=== PATIENT | male | born 1930 | race Caucasian/White ===

== ENCOUNTER 2017-07-12 11:53 | Outpatient (CLI) | payer MEDICARE, OTHER ==
[2017-07-12 19:12] LABS: BASOPHILS # (AUTO) 0.1 10^3/uL (0.0-0.1); BASOPHILS % (AUTO) 0.9 %; EOSINOPHILS # (AUTO) 0.2 10^3/uL (0.0-0.7); EOSINOPHILS % (AUTO) 1.9 %; HCT - HEMATOCRIT 37.6 % (42.0-52.0); HGB - HEMOGLOBIN 12.6 g/dL (14.0-18.0); LYMPHOCYTES # (AUTO) 1.4 10^3/uL (1.5-3.5); LYMPHOCYTES % (AUTO) 17.5 %; MEAN CORPUSCULAR HEMOGLOBIN 31.9 pg (27.0-31.0); MEAN CORPUSCULAR HGB CONC 33.4 g/dL (32.0-36.0); MEAN CORPUSCULAR VOLUME 95.4 fL (80.0-94.0); MEAN PLATELET VOLUME 10.9 fL (7.4-11.4); MONOCYTES # (AUTO) 0.8 10^3/uL (0.0-1.0); MONOCYTES % (AUTO) 10.5 %; NEUTROPHILS # (AUTO) 5.5 10^3/uL (1.5-6.6); NEUTROPHILS % (AUTO) 69.2 %; RED BLOOD COUNT 3.94 10^6/uL (4.70-6.10); RED CELL DISTRIBUTION WIDTH 14.5 % (12.0-15.0); UNCORRECTED WHITE BLOOD COUNT 7.9 x10^3/uL; WHITE BLOOD COUNT 7.9 x10^3/uL (4.8-10.8)
[2017-07-12 19:15] LABS: ALBUMIN/GLOBULIN RATIO 1.3 (1.0-2.2); BILIRUBIN,TOTAL 0.8 mg/dL (0.2-1.0); BUN - BLOOD UREA NITROGEN 34 mg/dL (6-20); CALCIUM 9.1 mg/dL (8.5-10.3); CARBON DIOXIDE - CO2 24 mmol/L (21-32); CHLORIDE 109 mmol/L (101-111); CREATININE 1.8 mg/dL (0.6-1.2); GFR - MDRD 36 (>89); GLUCOSE 83 mg/dL (70-100); POTASSIUM 4.6 mmol/L (3.5-5.0); SODIUM 138 mmol/L (135-145); TOTAL PROTEIN 6.9 g/dL (6.7-8.2)
== END 2017-07-12 11:54 | disposition home or self-care (01) ==
LOC: LAB.WCP 11:53
PROVIDERS: ATTEND Family Medicine
DX: R53.83 Other fatigue (principal)
CPT/HCPCS: 36415; 80053; 84443; 85025

== ENCOUNTER 2018-03-26 08:09 | Outpatient (CLI) | payer MEDICARE, OTHER | END 2018-03-26 08:10 | disposition critical access hospital (66) | LOC: EMS 08:09 | PROVIDERS: ATTEND Surgery | DX: S09.93XA Unspecified injury of face, initial encounter (principal); W19.XXXA Unspecified fall, initial encounter; Y92.099 Unspecified place in other non-institutional residence as the place of occurrence of the external cause | CPT/HCPCS: A0425; A0429 ==

== ENCOUNTER 2018-03-26 08:30 | Emergency (ER) | payer MEDICARE, OTHER ==
--- NOTE | 2018-03-26 09:35 | ED Physician Documentation ---
PD HPI HEAD INJURY - Stated complaint Stated Complaint: GLF - Chief complaint Chief Complaint: Trauma Hd/Nk - History obtained from History obtained from: Patient, Family - History of Present Illness Mechanism of head injury: Fell Where head injury occurred: Home Timing - onset: Today Location of injury: Left, Front Quality of pain: Pain Associated symptoms: Amnesia, Other (found on the floor with blood present and swelling to the left eye). No: AMS, Nausea / vomiting, Neck pain, Paresthesias , Seizures, Ear drainage, Nasal drainage Symptoms improve with: Rest Symptoms worsen with: Palpation, Movement Contributing factors: No: Anticoagulated Similar symptoms before: Has not had sx before Recently seen: Not recently seen - Additional information Additional information: 87-year-old male with advanced dementia presents to the emergency department with his daughter after having fallen onto his face at [facility]. She indicates that he has had 3 falls in the last 4 days. He has had more falls recently but not this high of a frequency. He lives in assisted living. Review of Systems Constitutional: denies: Fever Eyes: denies: Decreased vision Ears: denies: Ear pain Nose: denies: Congestion Throat: denies: Sore throat Cardiac: denies: Chest pain / pressure, Palpitations Respiratory: denies: Dyspnea, Cough GI: denies: Abdominal Pain, Nausea, Vomiting : denies: Dysuria, Frequency Skin: denies: Rash Musculoskeletal: reports: Back pain (chronic). denies: Neck pain PD PAST MEDICAL HISTORY - Past Medical History Past Medical History: Yes Neuro: Alzhiemer's - Past Surgical History Past Surgical History: No - Allergies Allergies/Adverse Reactions: Allergies Allergy/AdvReac Type Severity Reaction Status Date / Time No Known Drug Allergies Allergy Verified 03/26/18 08:40 - Social History Does the pt smoke?: No Smoking Status: Never smoker Does the pt drink ETOH?: No Does the pt have substance abuse?: No - Immunizations Immunizations are current?: Yes PD ED PE NORMAL - Vitals Vital signs reviewed: Yes (wide pulse pressure. ) - General General: No acute distress, Well developed/nourished - HEENT HEENT: PERRL, EOMI, Other ( there is marked ecchymosis to the left eye with a laceration to the inferior corner. The eye itself does not appear injured and he reports normal vision to that eye. ) - Neck Neck: Supple, no meningeal sign, No bony TTP - Cardiac Cardiac: RRR, Other (2/6 holosystolic murmer. ) - Respiratory Respiratory: No respiratory distress, Clear bilaterally - Abdomen Abdomen: Soft, Non tender - Back Back: No CVA TTP - Derm Derm: Normal color, Warm and dry, No rash - Extremities Extremities: No deformity, No edema, Other (There are multiple bruises to the left arm and forearm several days old. ) - Neuro Neuro: No motor deficit, No sensory deficit, Normal speech Eye Opening: Spontaneous Motor: Obeys Commands Verbal: Confused GCS Score: 14 - Psych Psych: Normal mood, Normal affect Results - Vitals Vitals: Vital Signs - 24 hr 03/26/18 03/26/18 08:40 11:46 Temperature 36.3 C L Heart Rate 70 68 Respiratory 18 14 Rate Blood Pressure 133/67 H 161/72 H O2 Saturation 95 98 Oxygen O2 Source Room air - Labs Labs: Laboratory Tests 03/26/18 03/26/18 03/26/18 09:53 10:05 10:05 WBC 10.4 RBC 3.81 L Hgb 12.3 L Hct 36.3 L MCV 95.2 H MCH 32.3 H MCHC 33.9 RDW 14.5 Plt Count 166 MPV 9.7 Neut # 8.4 H Lymph # 1.1 L [place] # 0.8 Eos # 0.1 Baso # 0.1 Absolute Nucleated RBC 0.00 Nucleated RBC % 0.0 Sodium 136 Potassium 4.0 Chloride 104 Carbon Dioxide 24 Anion Gap 8.0 BUN 35 H Creatinine 1.5 H Estimated GFR (MDRD) 44 L Glucose 104 H Calcium 9.1 Total Bilirubin 1.1 H AST 25 ALT 19 Alkaline Phosphatase 59 Troponin I Total Protein 6.9 Albumin 3.9 Globulin 3.0 Albumin/Globulin Ratio 1.3 Lipase 14 L Urine Color YELLOW Urine Clarity CLEAR Urine pH 6.0 Ur Specific [place] 1.015 Urine Protein NEGATIVE Urine Glucose (UA) NEGATIVE Urine Ketones NEGATIVE Urine Occult Blood NEGATIVE Urine Nitrite NEGATIVE Urine Bilirubin NEGATIVE Urine Urobilinogen 0.2 (NORMAL) Ur Leukocyte Esterase NEGATIVE Ur Microscopic Review NOT INDICATED Urine Culture Comments NOT INDICATED 03/26/18 10:05 WBC RBC Hgb Hct MCV MCH MCHC RDW Plt Count MPV Neut # Lymph # [place] # Eos # Baso # Absolute Nucleated RBC Nucleated RBC % Sodium Potassium Chloride Carbon Dioxide Anion Gap BUN Creatinine Estimated GFR (MDRD) Glucose Calcium Total Bilirubin AST ALT Alkaline Phosphatase Troponin I < 0.04 Total Protein Albumin Globulin Albumin/Globulin Ratio Lipase Urine Color Urine Clarity Urine pH Ur Specific [place] Urine Protein Urine Glucose (UA) Urine Ketones Urine Occult Blood Urine Nitrite Urine Bilirubin Urine Urobilinogen Ur Leukocyte Esterase Ur Microscopic Review Urine Culture Comments - Rads (name of study) CT facial bones Radiology: Prelim report reviewed (Impression: Negative for fracture.), EMP read indepedently, See rad report CT head Radiology: Prelim report reviewed (Impression: Generalized age-related cortical atrophic changes without evidence of acute intracranial abnormality.), Final report received, EMP read indepedently, See rad report Procedures - Laceration (location) left lower lid Length in cm: 1 Wound type: Linear, Flap, Superficial, Clean Neurovascular status: Sensory intact, Motor intact, Vascular intact Anesthesia: Lidocaine 1%, With bicarb Wound Preparation: Hibiclens, Irrigated copiously NS, Wound explored, To the base Skin layer closure: Nylon, Interrupted, Size #-0 - enter number (6-0), Sutures - enter # (2) Other: Patient tolerated well, No complications, Neurovascular intact, Tetanus booster given Complexity: Simple - IVC sono (time) 0930 Bedside IVC sono: IVC measures (cm) (1.24), IVC collapsed c insp (cm) (complete) , Dehydration (est 1 liter) PD MEDICAL DECISION MAKING - ED course Complexity details: reviewed results, re-evaluated patient, considered differential, d/w patient, d/w family ED course: 87-year-old male with advancing dementia who is living in assisted living has had falls the past 3 days and he has fallen today and has a left periorbital hematoma. Hematoma is very impressive looking with a lot of swelling he has a little laceration under the eyelid and he appears mildly dehydrated on evaluation. He is administered a liter of saline CT scan of the face and head are without evidence of fracture or cranial hemorrhage and the remainder of the patient's blood work is not concerning. He is discharged back to his home in the care of his daughter who will increase his level of care at [facility]. Departure - Departure Disposition: 01 Home, Self Care Clinical Impression: Dehydration, Periorbital hematoma of left eye Contusion of face Qualifiers: Encounter type: initial encounter Qualified Code(s): S00.83XA - Contusion of other part of head, initial encounter Eyelid laceration, left Qualifiers: Encounter type: initial encounter Qualified Code(s): S01.112A - Laceration without foreign body of left eyelid and periocular area, initial encounter Condition: Stable Instructions: ED Contusion Eye, ED Dehydration, ED Laceration Facial Sutr Tape Follow-Up: Your, doctor [Other] Comments: sutures should be removed in 5 days.
[2018-03-26 10:10] LABS: BASOPHILS # (AUTO) 0.1 10^3/uL (0.0-0.1); BASOPHILS % (AUTO) 0.6 %; EOSINOPHILS # (AUTO) 0.1 10^3/uL (0.0-0.7); EOSINOPHILS % (AUTO) 0.9 %; HGB - HEMOGLOBIN 12.3 g/dL (14.0-18.0); LYMPHOCYTES # (AUTO) 1.1 10^3/uL (1.5-3.5); LYMPHOCYTES % (AUTO) 10.3 %; MEAN CORPUSCULAR HEMOGLOBIN 32.3 pg (27.0-31.0); MEAN CORPUSCULAR HGB CONC 33.9 g/dL (32.0-36.0); MEAN CORPUSCULAR VOLUME 95.2 fL (80.0-94.0); MEAN PLATELET VOLUME 9.7 fL (7.4-11.4); MONOCYTES # (AUTO) 0.8 10^3/uL (0.0-1.0); MONOCYTES % (AUTO) 7.7 %; NEUTROPHILS # (AUTO) 8.4 10^3/uL (1.5-6.6); NEUTROPHILS % (AUTO) 80.5 %; PLT - PLATELET COUNT 166 10^3/uL (130-450); RED BLOOD COUNT 3.81 10^6/uL (4.70-6.10); RED CELL DISTRIBUTION WIDTH 14.5 % (12.0-15.0); WHITE BLOOD COUNT 10.4 x10^3/uL (4.8-10.8)
[2018-03-26 10:23] LABS: ALBUMIN 3.9 g/dL (3.2-5.5); ALBUMIN/GLOBULIN RATIO 1.3 (1.0-2.2); BILIRUBIN,TOTAL 1.1 mg/dL (0.2-1.0); CALCIUM 9.1 mg/dL (8.5-10.3); CREATININE 1.5 mg/dL (0.6-1.2); TOTAL PROTEIN 6.9 g/dL (6.7-8.2)
--- NOTE | 2018-03-26 10:56 | CT Preliminary Report ---
Exam: CT HEAD W/O IMPRESSION: Generalized age-related cortical atrophic changes without evidence of acute intracranial abnormality. [facility] SITE ID: [id number]
--- NOTE | 2018-03-26 10:56 | CT Preliminary Report ---
Exam: CT FACIAL BONES W/O IMPRESSION: Negative for fracture [facility] SITE ID: [id number]
--- NOTE | 2018-03-26 10:56 | CT Report ---
EXAM: CT MAXILLOFACIAL WITHOUT CONTRAST EXAM DATE: 03/26/2018 10:29 AM. CLINICAL HISTORY: Fall orbital contusion. COMPARISONS: None. TECHNIQUE: Thin-section axial images were acquired of the face without contrast. Post-processing: Cor onal and sagittal reformats. Other: None. In accordance with CT protocol optimization, one or more of the following dose reduction techniques w ere utilized for this exam: automated exposure control, adjustment of mA and/or KV based on patient s ize, or use of iterative reconstructive technique. FINDINGS: Soft Tissue: Left periorbital, facial soft tissue swelling. Orbits: Symmetric and unremarkable. Bones: No fracture or bone lesion. DJD cervical spine Temporomandibular Joints: The temporomandibular joints are symmetric and normally located. Sinuses: Normal. No mucosal thickening or fluid levels. Other: Tonsillar calcifications IMPRESSION: Negative for fracture [facility] Referring Provider Line: [phone] SITE ID: [id number]
--- NOTE | 2018-03-26 10:56 | CT Report ---
EXAM: CT HEAD EXAM DATE: 03/26/2018 10:29 AM. CLINICAL HISTORY: Falls orbital contusion. COMPARISON: None. TECHNIQUE: Multiaxial CT images were obtained from the foramen magnum to the vertex. Reformats: Coron al. IV contrast: None. In accordance with CT protocol optimization, one or more of the following dose reduction techniques w ere utilized for this exam: automated exposure control, adjustment of mA and/or KV based on patient s ize, or use of iterative reconstructive technique. FINDINGS: Parenchyma: No intraparenchymal hemorrhage. No evidence of mass, midline shift, or CT findings of acu te infarction. Hebert-white differentiation is distinct. Diffuse chronic microangiopathic white matter changes are evident. Extraaxial Spaces: Normal for age. No subdural or epidural collections identified. Ventricles: The ventricles and cortical sulci are enlarged, consistent with age-related tissue loss. Sinuses and orbits: Imaged paranasal sinuses, orbits, and mastoids show no significant abnormality. Bones: No evidence of fracture or calvarial defect. Other: Left facial soft tissue swelling IMPRESSION: Generalized age-related cortical atrophic changes without evidence of acute intracranial abnormality. [facility] Referring Provider Line: [phone] SITE ID: [id number]
[2018-03-26 11:27] LABS: BILIRUBIN,URINE NEGATIVE (NEGATIVE); GLUCOSE, URINE (UA) NEGATIVE (NEGATIVE); KETONES,URINE (UA) NEGATIVE (NEGATIVE); LEUKOCYTE ESTERASE, URINE NEGATIVE (NEGATIVE); NITRITE,URINE NEGATIVE (NEGATIVE); OCCULT BLOOD,URINE NEGATIVE (NEGATIVE); PROTEIN,URINE NEGATIVE (NEGATIVE); UROBILINOGEN,URINE 0.2 (NORMAL) E.U./dL (NORMAL)
[2018-03-26 11:33] LABS: CLARITY,URINE CLEAR (CLEAR)
[2018-03-26] MEDS ORDERED: SODIUM CHLORIDE 0.9% 1,000 ML IV ONE (11:39)
[2018-03-26] MEDS ORDERED: BUFFERED LIDOCAINE 10 ML SYRINGE SUBQ STA (13:10)
[2018-03-26] MEDS ORDERED: TETANUS/DIPHTHERIA/PERTUSSIS 0.5 ML SYRINGE IM ONE (14:07)
[2018-03-26 14:54] VITALS: BP 151/67
== END 2018-03-26 14:54 | disposition home or self-care (01) ==
LOC: EDUNIT# → ED 08:30
DX: S01.112A Laceration without foreign body of left eyelid and periocular area, initial encounter (principal); S00.12XA Contusion of left eyelid and periocular area, initial encounter; S00.83XA Contusion of other part of head, initial encounter; S50.12XA Contusion of left forearm, initial encounter; S40.022A Contusion of left upper arm, initial encounter; W01.0XXA Fall on same level from slipping, tripping and stumbling without subsequent striking against object, initial encounter; Y92.099 Unspecified place in other non-institutional residence as the place of occurrence of the external cause; Z91.81 History of falling; E86.0 Dehydration; G30.9 Alzheimer's disease, unspecified; F02.80 Dementia in other diseases classified elsewhere, unspecified severity, without behavioral disturbance, psychotic disturbance, mood disturbance, and anxiety; Z23 Encounter for immunization
CPT/HCPCS: 12001; 36415; 70450; 70486; 80053; 81001; 81003; 83690; 84484; 85025; 87086; 90471; 96360; 96361; 99284

== ENCOUNTER 2018-03-27 10:14 | Outpatient (CLI) | payer MEDICARE, OTHER | END 2018-03-27 10:15 | disposition critical access hospital (66) | LOC: EMS 10:14 | PROVIDERS: ATTEND Surgery | DX: S05.92XA Unspecified injury of left eye and orbit, initial encounter (principal); M25.561 Pain in right knee; W18.30XA Fall on same level, unspecified, initial encounter; Y93.01 Activity, walking, marching and hiking; Y92.038 Other place in apartment as the place of occurrence of the external cause | CPT/HCPCS: A0425; A0429 ==

== ENCOUNTER 2018-03-27 10:33 | Emergency (ER) | payer MEDICARE, OTHER ==
[2018-03-27 11:02] VITALS: BP 163/69
[2018-03-27 11:59] LABS: BILIRUBIN,URINE NEGATIVE (NEGATIVE); GLUCOSE, URINE (UA) NEGATIVE (NEGATIVE); KETONES,URINE (UA) NEGATIVE (NEGATIVE); LEUKOCYTE ESTERASE, URINE NEGATIVE (NEGATIVE); NITRITE,URINE NEGATIVE (NEGATIVE); OCCULT BLOOD,URINE NEGATIVE (NEGATIVE); PROTEIN,URINE NEGATIVE (NEGATIVE); UROBILINOGEN,URINE 0.2 (NORMAL) E.U./dL (NORMAL)
[2018-03-27 12:00] LABS: CLARITY,URINE CLEAR (CLEAR)
--- NOTE | 2018-03-27 12:54 | ED Physician Documentation ---
PD HPI Fall - Stated complaint Stated Complaint: L EYE SWELLING, GLF - Chief complaint Chief Complaint: Trauma Hd/Nk - History obtained from History obtained from: Patient, Family - History of Present Illness Mechanism of injury: Unknown Fall distance: Standing position Where injury occurred: Home Timing - onset: Today Injury(ies) location: Face Quality of pain: Pain Associated symptoms: Amnesia Symptoms improve with: Rest Worsens with: Palpation Contributing factors: No: Anticoagulated, Intoxicated Similar symptoms before: Diagnosis (facial contusion with dehydration) Recently seen: Emergency Dept - Additional information Additional information: 87-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 In the past 5 days he has had 4 falls. He injured his left periorbital area yesterday and was evaluated in the emergency department with CT scan of the head and face some sutures were placed to a laceration to the lower lid and he was given intravenous saline for dehydration. He has gone back to [facility] they have increased his surveillance and he fell again. Today he comes in with injury to his right knee and the right periorbital tissues. The patient himself denies nausea he does have some pain associated with this. Review of Systems Constitutional: denies: Fever Eyes: denies: Loss of vision, Decreased vision Nose: denies: Congestion Throat: denies: Sore throat Cardiac: denies: Chest pain / pressure Respiratory: denies: Dyspnea, Cough GI: denies: Abdominal Pain, Nausea, Vomiting : denies: Dysuria, Frequency Skin: denies: Rash Musculoskeletal: denies: Neck pain, Back pain, Extremity pain Neurologic: reports: Generalized weakness, Confused, Headache, Head injury PD PAST MEDICAL HISTORY - Past Medical History Past Medical History: Yes Neuro: Alzhiemer's - Past Surgical History Past Surgical History: No - Allergies Allergies/Adverse Reactions: Allergies Allergy/AdvReac Type Severity Reaction Status Date / Time No Known Drug Allergies Allergy Verified 03/26/18 08:40 - Social History Does the pt smoke?: No Smoking Status: Never smoker Does the pt drink ETOH?: No Does the pt have substance abuse?: No - Immunizations Immunizations are current?: Yes PD ED PE NORMAL - Vitals Vital signs reviewed: Yes (hypertensive) - General General: No acute distress, Well developed/nourished - HEENT HEENT: EOMI, Other (There is marked ecchymosis to both periorbital areas worse on the left and there is extention of the hematoma from yesterday over the left eye into the forehead. ) - Neck Neck: Supple, no meningeal sign, No bony TTP - Cardiac Cardiac: RRR, No murmur - Respiratory Respiratory: No respiratory distress, Clear bilaterally - Abdomen Abdomen: Soft, Non tender - Derm Derm: Normal color, Warm and dry, No rash - Extremities Extremities: No deformity, No edema - Neuro Neuro: No motor deficit, No sensory deficit, Normal speech Eye Opening: Spontaneous Motor: Obeys Commands Verbal: Confused GCS Score: 14 - Psych Psych: Normal mood, Normal affect Results - Vitals Vitals: Vital Signs - 24 hr 03/27/18 10:52 Temperature 36.2 C L Heart Rate 58 L Respiratory 14 Rate Blood Pressure 163/69 H O2 Saturation 96 Oxygen O2 Source Room air - Labs Labs: Laboratory Tests 03/27/18 03/27/18 03/27/18 11:40 14:15 14:21 WBC 9.2 RBC 4.01 L Hgb 12.8 L Hct 38.6 L MCV 96.3 H MCH 31.9 H MCHC 33.1 RDW 14.4 Plt Count 176 MPV 9.5 Neut # 7.0 H Lymph # 1.4 L [place] # 0.7 Eos # 0.1 Baso # 0.0 Absolute Nucleated RBC 0.00 Nucleated RBC % 0.0 Sodium Potassium Chloride Carbon Dioxide Anion Gap BUN Creatinine Estimated GFR (MDRD) Glucose Lactic Acid 1.0 Calcium Total Bilirubin AST ALT Alkaline Phosphatase Total Creatine Kinase CK-MB (CK-2) Troponin I Total Protein Albumin Globulin Albumin/Globulin Ratio Lipase Urine Color YELLOW Urine Clarity CLEAR Urine pH 5.0 Ur Specific [place] 1.015 Urine Protein NEGATIVE Urine Glucose (UA) NEGATIVE Urine Ketones NEGATIVE Urine Occult Blood NEGATIVE Urine Nitrite NEGATIVE Urine Bilirubin NEGATIVE Urine Urobilinogen 0.2 (NORMAL) Ur Leukocyte Esterase NEGATIVE Ur Microscopic Review NOT INDICATED Urine Culture Comments NOT INDICATED 03/27/18 03/27/18 14:21 14:21 WBC RBC Hgb Hct MCV MCH MCHC RDW Plt Count MPV Neut # Lymph # [place] # Eos # Baso # Absolute Nucleated RBC Nucleated RBC % Sodium 136 Potassium 4.1 Chloride 104 Carbon Dioxide 22 Anion Gap 10.0 BUN 28 H Creatinine 1.2 Estimated GFR (MDRD) 58 L Glucose 99 Lactic Acid Calcium 9.3 Total Bilirubin 1.5 H AST 30 ALT 18 Alkaline Phosphatase 62 Total Creatine Kinase 248 CK-MB (CK-2) 8.5 H Troponin I < 0.04 Total Protein 7.3 Albumin 3.8 Globulin 3.5 Albumin/Globulin Ratio 1.1 Lipase 16 L Urine Color Urine Clarity Urine pH Ur Specific [place] Urine Protein Urine Glucose (UA) Urine Ketones Urine Occult Blood Urine Nitrite Urine Bilirubin Urine Urobilinogen Ur Leukocyte Esterase Ur Microscopic Review Urine Culture Comments - Rads (name of study) CT head without Radiology: Prelim report reviewed (Impression: 1. Generalized age-related cortical atrophic changes without evidence of acute intracranial abnormality. 2. Increasing upper facial edema with increased enlarged left forehead hematoma. ) PD MEDICAL DECISION MAKING - ED course Complexity details: reviewed old records, reviewed results, re-evaluated patient , considered differential, d/w family ED course: 87-year-old male with the fourth fall in 5 days has advanced dementia is living in a dementia care unit and they have upped the number of times here checking on him but he does not have any movement monitors or restrictions to his ability to get in and out of bed. The family would like to take him back to [facility] and attempt further care. They are concerned about the possibility of more falls as am I. They are looking in to rails for his bed and alarms. Departure - Departure Disposition: 01 Home, Self Care Clinical Impression: Frequent falls Contusion of face Qualifiers: Encounter type: initial encounter Qualified Code(s): S00.83XA - Contusion of other part of head, initial encounter Condition: Stable Instructions: ED Contusion Face, ED Prevention Fall Follow-Up: Mushtaq Velez MD [Primary Care Provider] -
--- NOTE | 2018-03-27 14:14 | CT Preliminary Report ---
Exam: CT HEAD W/O IMPRESSION: 1. Generalized age-related cortical atrophic changes without evidence of acute intracranial abnormali ty. 2. Increasing upper facial edema with increase in large left forehead hematoma. [facility] SITE ID: [id number]
--- NOTE | 2018-03-27 14:18 | CT Report ---
EXAM: CT HEAD EXAM DATE: 03/27/2018 01:44 PM. CLINICAL HISTORY: Multiple falls with trauma. Bilateral orbital ecchymoses. COMPARISON: 03/26/2018. TECHNIQUE: Multiaxial CT images were obtained from the foramen magnum to the vertex. Reformats: Coron al. IV contrast: None. In accordance with CT protocol optimization, one or more of the following dose reduction techniques w ere utilized for this exam: automated exposure control, adjustment of mA and/or KV based on patient s ize, or use of iterative reconstructive technique. FINDINGS: Parenchyma: No intraparenchymal hemorrhage. No evidence of mass, midline shift, or CT findings of acu te infarction. Hebert-white differentiation is distinct. Diffuse chronic microangiopathic white matter changes are evident. Extraaxial Spaces: Normal for age. No subdural or epidural collections identified. Ventricles: The ventricles and cortical sulci are enlarged, consistent with age-related tissue loss. Sinuses and orbits: Imaged paranasal sinuses, orbits, and mastoids show no significant abnormality. Bones: No evidence of fracture or calvarial defect. Other: Increasing caliber of the left forehead hematoma, previously 1.5 x 1 cm, now 3.5 x 2 cm. Incre asing marked amount of less focal edema or blood products in the adjacent left forehead, with increas ing bilateral pre-septal edema. No intraorbital abnormality. IMPRESSION: 1. Generalized age-related cortical atrophic changes without evidence of acute intracranial abnormali ty. 2. Increasing upper facial edema with increasing large left forehead hematoma. [facility] Referring Provider Line: [phone] SITE ID: [id number]
[2018-03-27 14:33] LABS: BASOPHILS % (AUTO) 0.5 %; EOSINOPHILS # (AUTO) 0.1 10^3/uL (0.0-0.7); EOSINOPHILS % (AUTO) 1.1 %; HGB - HEMOGLOBIN 12.8 g/dL (14.0-18.0); LYMPHOCYTES # (AUTO) 1.4 10^3/uL (1.5-3.5); LYMPHOCYTES % (AUTO) 14.7 %; MEAN CORPUSCULAR HEMOGLOBIN 31.9 pg (27.0-31.0); MEAN CORPUSCULAR HGB CONC 33.1 g/dL (32.0-36.0); MEAN CORPUSCULAR VOLUME 96.3 fL (80.0-94.0); MEAN PLATELET VOLUME 9.5 fL (7.4-11.4); MONOCYTES # (AUTO) 0.7 10^3/uL (0.0-1.0); MONOCYTES % (AUTO) 7.4 %; NEUTROPHILS % (AUTO) 76.3 %; PLT - PLATELET COUNT 176 10^3/uL (130-450); RED BLOOD COUNT 4.01 10^6/uL (4.70-6.10); RED CELL DISTRIBUTION WIDTH 14.4 % (12.0-15.0); WHITE BLOOD COUNT 9.2 x10^3/uL (4.8-10.8)
[2018-03-27 14:47] LABS: ALBUMIN 3.8 g/dL (3.2-5.5); ALBUMIN/GLOBULIN RATIO 1.1 (1.0-2.2); BILIRUBIN,TOTAL 1.5 mg/dL (0.2-1.0); CALCIUM 9.3 mg/dL (8.5-10.3); CREATININE 1.2 mg/dL (0.6-1.2); TOTAL PROTEIN 7.3 g/dL (6.7-8.2)
[2018-03-27 14:51] LABS: TROPONIN I < 0.04 ng/mL (<0.49)
[2018-03-27 14:53] LABS: CREATINE KINASE MB 8.5 ng/mL (0.6-6.3)
== END 2018-03-27 15:05 | disposition home or self-care (01) ==
LOC: EDUNIT# → ED 10:33
DX: S00.83XA Contusion of other part of head, initial encounter (principal); W18.30XA Fall on same level, unspecified, initial encounter; Z91.81 History of falling; G30.9 Alzheimer's disease, unspecified; F02.80 Dementia in other diseases classified elsewhere, unspecified severity, without behavioral disturbance, psychotic disturbance, mood disturbance, and anxiety
CPT/HCPCS: 36415; 70450; 80053; 81001; 81003; 82550; 82553; 83605; 83690; 84484; 85025; 87086; 99283; 99284

== ENCOUNTER 2018-08-24 13:24 | Outpatient (CLI) | payer MEDICARE, OTHER | END 2018-08-24 13:25 | disposition critical access hospital (66) | LOC: EMS 13:24 | PROVIDERS: ATTEND Surgery | DX: R41.82 Altered mental status, unspecified (principal); W19.XXXA Unspecified fall, initial encounter; Y92.038 Other place in apartment as the place of occurrence of the external cause | CPT/HCPCS: A0425; A0429 ==

== ENCOUNTER 2018-08-24 13:45 | Emergency (ER) | payer MEDICARE, OTHER ==
[2018-08-24] MEDS ORDERED: SODIUM CHLORIDE 0.9% 1,000 ML IV ONE (14:11)
[2018-08-24 14:46] LABS: BASOPHILS # (AUTO) 0.1 10^3/uL (0.0-0.1); BASOPHILS % (AUTO) 1.2 %; EOSINOPHILS # (AUTO) 0.2 10^3/uL (0.0-0.7); EOSINOPHILS % (AUTO) 3.9 %; HGB - HEMOGLOBIN 12.1 g/dL (14.0-18.0); LYMPHOCYTES # (AUTO) 1.6 10^3/uL (1.5-3.5); LYMPHOCYTES % (AUTO) 26.6 %; MEAN CORPUSCULAR HEMOGLOBIN 32.8 pg (27.0-31.0); MEAN CORPUSCULAR HGB CONC 34.3 g/dL (32.0-36.0); MEAN CORPUSCULAR VOLUME 95.6 fL (80.0-94.0); MEAN PLATELET VOLUME 9.6 fL (7.4-11.4); MONOCYTES # (AUTO) 0.6 10^3/uL (0.0-1.0); NEUTROPHILS # (AUTO) 3.5 10^3/uL (1.5-6.6); NEUTROPHILS % (AUTO) 58.3 %; PLT - PLATELET COUNT 185 10^3/uL (130-450); RED CELL DISTRIBUTION WIDTH 14.6 % (12.0-15.0); WHITE BLOOD COUNT 6.1 x10^3/uL (4.8-10.8)
[2018-08-24 15:00] LABS: ALBUMIN 3.9 g/dL (3.2-5.5); ALBUMIN/GLOBULIN RATIO 1.3 (1.0-2.2); BILIRUBIN,TOTAL 1.3 mg/dL (0.2-1.0); CALCIUM 9.1 mg/dL (8.5-10.3); CREATININE 1.2 mg/dL (0.6-1.2)
--- NOTE | 2018-08-24 15:05 | XRAY Report ---
Reason: collapse and altered LOC Procedure Date: 08/24/2018 Accession Number: [id number] / [id number] Procedure: XR - Chest 2 View X-Ray CPT Code: 48582 FULL RESULT: EXAM: CHEST RADIOGRAPHY EXAM DATE: 08/24/2018 02:49 PM. CLINICAL HISTORY: Collapse and altered LOC. COMPARISON: CHEST 1 VIEW 07/12/2017 11:15 AM. TECHNIQUE: 2 views. FINDINGS: Radiograph is limited by underpenetration, rotation and presumed portable technique. Lungs/Pleura: Redemonstration of chronic elevation of the right hemidiaphragm with no definite airspace opacification. Question mild pulmonary edema versus underpenetrated technique. No sizable pneumothorax or pleural effusion. Mediastinum: Accounting for differences in technique, the cardiomediastinal silhouette is likely stable. Other: None. IMPRESSION: Limited exam with no definite cardiopulmonary abnormality. [facility]
--- NOTE | 2018-08-24 15:34 | ED Physician Documentation ---
PD HPI ALTERED MENTAL STATUS - Stated complaint Stated Complaint: FALL - Chief complaint Chief Complaint: Neuro - History obtained from History obtained from: Patient, Family, EMS - History of Present Illness Timing - onset: Today Timing - duration: Minutes Timing - details: Abrupt onset, Still present Quality / character: Unresponsive Associated symptoms: No: Fever, Headache, Stiff neck, Dyspnea, Cough, NVD, Urinary sx, General weakness, Focal weakness, Seizure activity, Syncope Contributing factors: Known dementia. No: Anticoagulated Basline status: Ambulatory, Confused Similar symptoms before: Diagnosis (dehydration) Recently seen: Not recently seen - Additional information Additional information: 88-year-old male went down to breakfast this morning and used his walker to come back and went to lunch came back and was outside of his door when he suddenly collapsed and became unresponsive. He was awakened by the nurses and he did not have any injury with the collapse. He subsequently again became unresponsive and he is now transferred to the hospital for evaluation. The patient's daughters who have seen him frequently and of seen him yesterday states that yesterday he was acting his usual self. They state that he is normally able to use his walker and get himself to and from the cafeteria. He is otherwise in assisted living at [facility] and he does not take any medications. The daughter indicates he seems to be falling asleep easily the past 2 weeks. He is on his own for hydration at [facility]. Review of Systems Constitutional: denies: Fever Eyes: denies: Decreased vision Ears: denies: Ear pain Nose: denies: Congestion Throat: denies: Sore throat Respiratory: denies: Cough GI: denies: Vomiting, Diarrhea : denies: Dysuria Skin: denies: Rash Musculoskeletal: reports: Back pain. denies: Neck pain, Extremity pain Neurologic: reports: Altered mental status. denies: Generalized weakness, Focal weakness, Numbness PD PAST MEDICAL HISTORY - Past Medical History Neuro: Alzhiemer's Musculoskeletal: Chronic back pain - Past Surgical History Past Surgical History: No Ortho: Spine surgery - Present Medications Home Medications: Ambulatory Orders Medication Instructions Recorded Confirmed Acetaminophen [Tylenol Extra 08/24/18 Strength] Cholecalciferol (Vitamin D3) 08/24/18 [Vitamin D3] Glucosamine/Chondro Suarez A 08/24/18 [Glucosamine-Chondroitin Tab] Krill/[place]-3/Dha/Epa/Lipids 08/24/18 [Krill Oil 350 mg Softgel] L.acid/L.casei/B.bif/B.mohamud/Fos 08/24/18 [Probiotic Blend Capsule] Multivitamin [Multiple Vitamins] 08/24/18 [place] 3,6,9 Combination No.7 08/24/18 [[place] Dha] Oxycodone HCl 08/24/18 Senna [Senokot] 08/24/18 - Allergies Allergies/Adverse Reactions: Allergies Allergy/AdvReac Type Severity Reaction Status Date / Time No Known Drug Allergies Allergy Verified 08/24/18 13:54 - Social History Does the pt smoke?: No Smoking Status: Never smoker Does the pt drink ETOH?: No Does the pt have substance abuse?: No - Immunizations Immunizations are current?: Yes PD ED PE NORMAL - Vitals Vital signs reviewed: Yes (hypertenisve and bradycardic) - General General: No acute distress, Well developed/nourished, Other (appears to be asleep ) - HEENT HEENT: Atraumatic, PERRL, EOMI, Ears normal (both ears are full of cerumen and this is removed with some pain to the patient that awakens him briefly ), Other (dry mucous membranes ) - Neck Neck: Supple, no meningeal sign, No bony TTP - Cardiac Cardiac: No murmur, Other (bradycardic) - Respiratory Respiratory: No respiratory distress, Clear bilaterally - Abdomen Abdomen: Soft, Non tender - Back Back: No CVA TTP, No spinal TTP - Derm Derm: Normal color, Warm and dry, No rash - Extremities Extremities: No deformity, No edema - Neuro Neuro: correction warden 2-12 intact, No motor deficit, No sensory deficit, Normal speech Eye Opening: Spontaneous Motor: Obeys Commands Verbal: Confused GCS Score: 14 - Psych Psych: Normal mood, Normal affect Results - Vitals Vitals: Vital Signs - 24 hr 08/24/18 08/24/18 13:47 14:26 Heart Rate 46 L 48 L Respiratory 12 13 Rate Blood Pressure 159/80 H 156/75 H O2 Saturation 96 97 Oxygen O2 Source Room air - EKG (time done) 1352 Rate: Rate (enter#) (47) Intervals: Wide QRS Compare to prior EKG: Old EKG unavailable Computer interpretation: Agree with computer - Labs Labs: Laboratory Tests 08/24/18 08/24/18 08/24/18 14:24 14:24 14:24 WBC 6.1 RBC 3.70 L Hgb 12.1 L Hct 35.4 L MCV 95.6 H MCH 32.8 H MCHC 34.3 RDW 14.6 Plt Count 185 MPV 9.6 Neut # (Auto) 3.5 Lymph # (Auto) 1.6 [place] # (Auto) 0.6 Eos # (Auto) 0.2 Baso # (Auto) 0.1 Absolute Nucleated RBC 0.00 Nucleated RBC % 0.0 Sodium 136 Potassium 4.5 Chloride 104 Carbon Dioxide 24 Anion Gap 8.0 BUN 35 H Creatinine 1.2 Estimated GFR (MDRD) 57 L Glucose 102 H Calcium 9.1 Total Bilirubin 1.3 H AST 29 ALT 22 Alkaline Phosphatase 60 Troponin I < 0.04 Total Protein 7.0 Albumin 3.9 Globulin 3.1 Albumin/Globulin Ratio 1.3 Lipase 25 - Rads (name of study) 2 veiw chest Radiology: Prelim report reviewed (Impression: Limited exam with no definite cardiopulmonary abnormality.), EMP read indepedently, See rad report CT head without Radiology: Prelim report reviewed (Impression: No acute intracranial abnormality.), EMP read indepedently, See rad report Procedures - IVC sono (time) 1440 Bedside IVC sono: IVC measures (cm) (1.12), IVC collapsed c insp (cm) (complete), Dehydration (est > 1 liter deficit) PD MEDICAL DECISION MAKING - ED course Complexity details: reviewed old records, reviewed results, re-evaluated patient, considered differential, d/w patient, d/w family ED course: 88-year-old male with advanced dementia has become significantly dehydrated and today is nonresponsive. After hydration is started the patient awakens and begins to talk to his family normally. He is joking and appears lucid. He has no memory of events. He is hydrated with 1 L of saline, wakes up entirely and is discharged back to home. He did not appear to have any injury today and there were no other abnormalities to explain his sudden sleepiness. It does appear that he may have fallen deeply asleep. - Sepsis Event Vital Signs: Vital Signs - 24 hr 08/24/18 08/24/18 13:47 14:26 Heart Rate 46 L 48 L Respiratory 12 13 Rate Blood Pressure 159/80 H 156/75 H O2 Saturation 96 97 Oxygen O2 Source Room air Departure - Departure Disposition: 01 Home, Self Care Clinical Impression: Dehydration Condition: Stable Instructions: ED Dehydration Follow-Up: Mushtaq Velez MD [Provider Admit Priv/Credential] - Discharge Date/Time: 08/24/18 16:45
[2018-08-24 15:46] LABS: BILIRUBIN,URINE NEGATIVE (NEGATIVE); GLUCOSE, URINE (UA) NEGATIVE (NEGATIVE); KETONES,URINE (UA) NEGATIVE (NEGATIVE); LEUKOCYTE ESTERASE, URINE NEGATIVE (NEGATIVE); NITRITE,URINE NEGATIVE (NEGATIVE); OCCULT BLOOD,URINE NEGATIVE (NEGATIVE); PROTEIN,URINE NEGATIVE (NEGATIVE); UROBILINOGEN,URINE 0.2 (NORMAL) E.U./dL (NORMAL)
[2018-08-24 15:54] LABS: CLARITY,URINE CLEAR (CLEAR)
--- NOTE | 2018-08-24 16:05 | CT Report ---
Reason: altered LOC Procedure Date: 08/24/2018 Accession Number: [id number] / [id number] Procedure: CT - Head W/O CPT Code: FULL RESULT: EXAM: CT HEAD EXAM DATE: 08/24/2018 03:25 PM. CLINICAL HISTORY: Altered loss of consciousness. COMPARISON: Head without contrast 08/24/2018 3:18 PM. TECHNIQUE: Multiaxial CT images were obtained from the foramen magnum to the vertex. Reformats: Sagittal and coronal. IV contrast: None. In accordance with CT protocol optimization, one or more of the following dose reduction techniques were utilized for this exam: automated exposure control, adjustment of mA and/or KV based on patient size, or use of iterative reconstructive technique. FINDINGS: Parenchyma: No intraparenchymal hemorrhage. No evidence of mass, midline shift, or CT findings of infarction. Hebert-white differentiation is distinct. Extraaxial Spaces: Normal for age. No subdural or epidural collections identified. Ventricles: Normal in size and position. Sinuses and Orbits: Imaged paranasal sinuses, orbits, and mastoids show no significant abnormality. Bones: No evidence of fracture or calvarial defect. Other: None. IMPRESSION: No acute intracranial abnormality. RADIA
[2018-08-24 16:45] VITALS: BP 153/72
== END 2018-08-24 16:45 | disposition home or self-care (01) ==
LOC: ED 13:45
DX: E86.0 Dehydration (principal); I47.2 Ventricular tachycardia; G30.9 Alzheimer's disease, unspecified; F02.80 Dementia in other diseases classified elsewhere, unspecified severity, without behavioral disturbance, psychotic disturbance, mood disturbance, and anxiety; W19.XXXA Unspecified fall, initial encounter; Y92.099 Unspecified place in other non-institutional residence as the place of occurrence of the external cause; R41.0 Disorientation, unspecified
CPT/HCPCS: 36415; 70450; 71046; 80053; 81001; 81003; 83690; 84484; 85025; 87086; 93005; 96360; 99284

== ENCOUNTER 2018-11-13 23:49 | Outpatient (CLI) | payer MEDICARE, OTHER | END 2018-11-13 23:50 | disposition critical access hospital (66) | LOC: EMS 23:49 | PROVIDERS: ATTEND Surgery | DX: M25.512 Pain in left shoulder (principal); W18.30XA Fall on same level, unspecified, initial encounter; Y92.099 Unspecified place in other non-institutional residence as the place of occurrence of the external cause | CPT/HCPCS: A0425; A0429 ==

== ENCOUNTER 2018-11-14 00:05 | Emergency (ER) | payer MEDICARE, OTHER ==
--- NOTE | 2018-11-14 00:59 | ED Physician Documentation ---
PD HPI UPPER EXT INJURY - Stated complaint Stated Complaint: GLF - RIGHT SHOULDER PAIN - Chief complaint Chief Complaint: Trauma Ext - History obtained from History obtained from: Patient, EMS, Caregiver - History of Present Illness Location: Right, Shoulder Type of injury: Fall (He does have history of dementia and does not remember falling per se. He is found by staff at [facility] on the floor and complaining of pain of the left shoulder.) Where injury occurred: Other ([facility]) Timing - onset: Today Timing - details: Abrupt onset Improved by: Rest Worsened by: Moving, Palpating Associated symptoms: No: Weakness, Numbness Contributing factors: No: Anticoagulated Similar symptoms before: Has not had sx before Recently seen: Not recently seen Review of Systems Unable to obtain: Dementia Cardiac: denies: Chest pain / pressure GI: denies: Abdominal Pain Skin: denies: Abrasion (s), Laceration (s) Neurologic: denies: Headache PD PAST MEDICAL HISTORY - Past Medical History Past Medical History: Yes Neuro: Alzhiemer's Musculoskeletal: Chronic back pain - Past Surgical History Past Surgical History: No Ortho: Spine surgery - Present Medications Home Medications: Ambulatory Orders Medication Instructions Recorded Confirmed Acetaminophen [Tylenol Extra 08/24/18 Strength] Cholecalciferol (Vitamin D3) 08/24/18 [Vitamin D3] Glucosamine/Chondro Suarez A 08/24/18 [Glucosamine-Chondroitin Tab] Krill/[place]-3/Dha/Epa/Lipids 08/24/18 [Krill Oil 350 mg Softgel] L.acid/L.casei/B.bif/B.mohamud/Fos 08/24/18 [Probiotic Blend Capsule] Multivitamin [Multiple Vitamins] 08/24/18 [place] 3,6,9 Combination No.7 08/24/18 [[place] Dha] Senna [Senokot] 08/24/18 - Allergies Allergies/Adverse Reactions: Allergies Allergy/AdvReac Type Severity Reaction Status Date / Time No Known Drug Allergies Allergy Verified 11/14/18 00:24 - Social History Does the pt smoke?: No Smoking Status: Never smoker Does the pt drink ETOH?: No Does the pt have substance abuse?: No - Immunizations Immunizations are current?: Yes - POLST Patient has POLST: Yes PD ED PE NORMAL - Vitals Vital signs reviewed: Yes - General General: Well developed/nourished. No: Alert and oriented X 3 (alert but to person only. Not sure of place and time. ) - HEENT HEENT: Atraumatic - Neck Neck: Supple, no meningeal sign, No adenopathy - Respiratory Respiratory: Other (no chestwall tenderness) - Abdomen Abdomen: Soft, Non tender - Derm Derm: Normal color, Warm and dry - Extremities Extremities: Other (left shoulder with tenderness at AC area and with ROM of the shoulder. No obvious deformity. right shoulder not tender. ) - Neuro Neuro: No motor deficit, No sensory deficit Results - Vitals Vitals: Vital Signs - 24 hr 11/14/18 11/14/18 00:06 01:45 Temperature 36.0 C L Heart Rate 59 L 60 Respiratory 18 16 Rate Blood Pressure 170/70 H 150/85 H O2 Saturation 98 99 Oxygen O2 Source Room air - Rads (name of study) left shoulder Radiology: Prelim report reviewed, EMP read contemporaneously (no fractures), See rad report PD MEDICAL DECISION MAKING - ED course Complexity details: reviewed results, considered differential, d/w patient Departure - Departure Disposition: 01 Home, Self Care Clinical Impression: Accidental fall Qualifiers: Encounter type: initial encounter Qualified Code(s): W19.XXXA - Unspecified fall, initial encounter Shoulder contusion Qualifiers: Encounter type: initial encounter Laterality: left Qualified Code(s): S40.012A - Contusion of left shoulder, initial encounter Clinical Impression: (Ruled Out): Shoulder fracture Condition: Stable Record reviewed to determine appropriate education?: Yes Instructions: ED Sprain Shoulder Comments: Your x-ray appears good without any signs of fractures. Your shoulder still sore and presumably have some injury to the ligaments and tendons of the shoulder. You can use a sling as needed for comfort and progress activity and use of the shoulder as able. Tylenol every 4 hours if needed for pains. Recheck if not improved over the next week or so. Discharge Date/Time: 11/14/18 02:14
[2018-11-14] MEDS ORDERED: ACETAMINOPHEN 325 MG TABLET PO STA (01:24)
--- NOTE | 2018-11-14 01:26 | XRAY Report ---
Reason: GLF/injury Procedure Date: 11/14/2018 Accession Number: [id number] / [id number] Procedure: XR - Shoulder 3 View LT CPT Code: FULL RESULT: EXAM: LEFT SHOULDER RADIOGRAPHY EXAM DATE: 11/14/2018 01:15 AM. CLINICAL HISTORY: GLF/injury. COMPARISON: None. TECHNIQUE: 4 views. FINDINGS: Bones: Normal. No fracture or bone lesion. Joints: Mild degenerative changes of the glenohumeral and acromioclavicular joints. Soft tissues: The visualized hemithorax is unremarkable. No soft tissue swelling. IMPRESSION: Mild osteoarthritis. No evidence of acute fracture. RADIA
[2018-11-14 01:49] VITALS: BP 150/85
== END 2018-11-14 02:14 | disposition home or self-care (01) ==
LOC: EDUNIT# → ED 00:05
DX: S40.012A Contusion of left shoulder, initial encounter (principal); G30.9 Alzheimer's disease, unspecified; F02.80 Dementia in other diseases classified elsewhere, unspecified severity, without behavioral disturbance, psychotic disturbance, mood disturbance, and anxiety; G89.29 Other chronic pain; M54.9 Dorsalgia, unspecified; W18.30XA Fall on same level, unspecified, initial encounter; Y92.099 Unspecified place in other non-institutional residence as the place of occurrence of the external cause
CPT/HCPCS: 73030; 99283; 99284; A9270

== ENCOUNTER 2018-12-10 12:36 | Outpatient (CLI) | payer MEDICARE, OTHER | END 2018-12-10 12:37 | disposition critical access hospital (66) | LOC: EMS 12:36 | PROVIDERS: ATTEND Surgery | DX: R41.82 Altered mental status, unspecified (principal); R55 Syncope and collapse | CPT/HCPCS: A0425; A0427 ==

== ENCOUNTER 2018-12-10 12:53 | Inpatient (IN) | payer MEDICARE, OTHER ==
[2018-12-10] MEDS ORDERED: SODIUM CHLORIDE 0.9% 1,000 ML IV ONE ×2 (13:10→15:30)
--- NOTE | 2018-12-10 13:13 | ED Physician Documentation ---
PD HPI ALTERED MENTAL STATUS - Stated complaint Stated Complaint: DEC LOC - Chief complaint Chief Complaint: Neuro - History obtained from History obtained from: Family, EMS - History of Present Illness Timing - onset: Enter time (0200), How many days ago (2) Timing - duration: Days (2) Timing - details: Abrupt onset, Still present Quality / character: Less responsive Associated symptoms: Cough, General weakness Contributing factors: Known dementia Basline status: Ambulatory, Confused Similar symptoms before: Diagnosis (dehdyration) Recently seen: Emergency Dept - Additional information Additional information: 88-year-old male with history of advanced dementia lives at [facility] and is usually independent able to get himself down to the cafeteria by himself. He was last seen normal at 2:00 in the morning the day before yesterday when he was having some trouble getting to sleep. He was able to get to sleep and he slept all day yesterday all night last night and this morning they were unable to arouse the patient. Medics found the patient to be hypoxic and hypotensive and started an IV and oxygen and brought to the patient to the hospital. The family is present at the bedside shortly after arrival of the patient and are requesting IV fluids to be administered. The patient has been getting encouragement from staff at [facility] to drink regularly but he has not had fluids and more than 30 hours. Review of Systems Unable to obtain: Unresponsive, Other (history from family saw him last 2 days ago acting normally for him.) Constitutional: denies: Fever Eyes: denies: Decreased vision Ears: denies: Ear pain Nose: denies: Congestion Throat: denies: Sore throat Cardiac: denies: Chest pain / pressure Respiratory: denies: Dyspnea, Cough GI: denies: Abdominal Pain, Nausea, Vomiting : denies: Dysuria Musculoskeletal: denies: Neck pain, Back pain, Extremity pain Neurologic: denies: Generalized weakness, Focal weakness, Numbness PD PAST MEDICAL HISTORY - Past Medical History Cardiovascular: None Respiratory: None Neuro: Alzhiemer's Endocrine/Autoimmune: None GI: None : None HEENT: None Psych: None Musculoskeletal: Chronic back pain Derm: None - Past Surgical History Past Surgical History: No Ortho: Spine surgery - Present Medications Home Medications: Ambulatory Orders Medication Instructions Recorded Confirmed Acetaminophen [Tylenol Extra 08/24/18 Strength] Cholecalciferol (Vitamin D3) 08/24/18 [Vitamin D3] Glucosamine/Chondro Suarez A 08/24/18 [Glucosamine-Chondroitin Tab] Krill/[place]-3/Dha/Epa/Lipids 08/24/18 [Krill Oil 350 mg Softgel] L.acid/L.casei/B.bif/B.mohamud/Fos 08/24/18 [Probiotic Blend Capsule] Multivitamin [Multiple Vitamins] 08/24/18 [place] 3,6,9 Combination No.7 08/24/18 [[place] Dha] Senna [Senokot] 08/24/18 - Allergies Allergies/Adverse Reactions: Allergies Allergy/AdvReac Type Severity Reaction Status Date / Time No Known Drug Allergies Allergy Verified 11/14/18 00:24 - Social History Does the pt smoke?: No Smoking Status: Never smoker Does the pt drink ETOH?: No Does the pt have substance abuse?: No - Immunizations Immunizations are current?: Yes - POLST Patient has POLST: Yes PD ED PE NORMAL - Vitals Vital signs reviewed: Yes (diastlic hypotension ) - General General: No acute distress, Well developed/nourished - HEENT HEENT: Atraumatic - Neck Neck: Supple, no meningeal sign - Cardiac Cardiac: RRR, No murmur - Respiratory Respiratory: No respiratory distress, Other (rhonchi is loud in all jeong consistent with transmitted upper airway sounds. ) - Abdomen Abdomen: Soft, Non tender - Back Back: No CVA TTP, No spinal TTP - Derm Derm: Normal color, Warm and dry, No rash - Extremities Extremities: No deformity, No edema - Neuro Eye Opening: To Pain Motor: Localizes to Pain Verbal: Inappropriate GCS Score: 10 Results - Vitals Vitals: Vital Signs - 24 hr 12/10/18 12/10/18 12/10/18 12:57 14:55 17:56 Temperature 37.5 C Heart Rate 94 94 106 H Respiratory 23 21 19 Rate Blood Pressure 123/48 L 126/52 L 139/55 H O2 Saturation 95 88 L 94 Oxygen O2 Source Non-rebreather mask - Labs Labs: Laboratory Tests 12/10/18 12/10/18 12/10/18 13:35 13:35 13:35 WBC 15.5 H RBC 3.62 L Hgb 11.7 L Hct 34.5 L MCV 95.4 H MCH 32.3 H MCHC 33.8 RDW 16.6 H Plt Count 199 MPV 8.6 Neut # (Auto) 13.9 H Lymph # (Auto) 0.6 L [place] # (Auto) 0.9 Eos # (Auto) 0.0 Baso # (Auto) 0.1 Absolute Nucleated RBC 0.01 Nucleated RBC % 0.0 Sodium 141 Potassium 4.8 Chloride 109 Carbon Dioxide 21 Anion Gap 11.0 BUN 56 H Creatinine 1.9 H Estimated GFR (MDRD) 34 L Glucose 149 H Lactic Acid Calcium 9.0 Total Bilirubin 1.3 H AST 57 H ALT 53 Alkaline Phosphatase 75 Troponin I 0.12 Total Protein 6.8 Albumin 3.2 Globulin 3.6 Albumin/Globulin Ratio 0.9 L Lipase 22 Urine Color Urine Clarity Urine pH Ur Specific [place] Urine Protein Urine Glucose (UA) Urine Ketones Urine Occult Blood Urine Nitrite Urine Bilirubin Urine Urobilinogen Ur Leukocyte Esterase Ur Microscopic Review Urine Culture Comments 12/10/18 12/10/18 13:35 16:50 WBC RBC Hgb Hct MCV MCH MCHC RDW Plt Count MPV Neut # (Auto) Lymph # (Auto) [place] # (Auto) Eos # (Auto) Baso # (Auto) Absolute Nucleated RBC Nucleated RBC % Sodium Potassium Chloride Carbon Dioxide Anion Gap BUN Creatinine Estimated GFR (MDRD) Glucose Lactic Acid 1.5 Calcium Total Bilirubin AST ALT Alkaline Phosphatase Troponin I Total Protein Albumin Globulin Albumin/Globulin Ratio Lipase Urine Color YELLOW Urine Clarity CLEAR Urine pH 5.0 Ur Specific [place] >=1.030 H Urine Protein NEGATIVE Urine Glucose (UA) NEGATIVE Urine Ketones 15 H Urine Occult Blood NEGATIVE Urine Nitrite NEGATIVE Urine Bilirubin NEGATIVE Urine Urobilinogen 0.2 (NORMAL) Ur Leukocyte Esterase NEGATIVE Ur Microscopic Review NOT INDICATED Urine Culture Comments NOT INDICATED - Rads (name of study) 1 veiw chest Radiology: Prelim report reviewed (Impression: No acute cardiopulmonary abnor mality is detected.), EMP read indepedently, See rad report CT head without Radiology: Prelim report reviewed (Impression: No acute intracranial abnormality.), EMP read indepedently, See rad report Procedures - IVC sono (time) 1300 Bedside IVC sono: IVC measures (cm) (0.72), IVC collapsed c insp (cm) (complete), Dehydration (est >2 liter deficit) PD MEDICAL DECISION MAKING - ED course Complexity details: reviewed old records, reviewed results, re-evaluated patient, considered differential, d/w family ED course: 88-year-old male who was last seen normal at 2 AM on Monday morning did not get up at all yesterday and continued to sleep through the night and this morning is still asleep. He has not had anything to eat or drink all day yesterday and is not responding. His daughter states that she was with him on Monday and that at that time he was his usual self talking and joking. He has had a similar episode several months ago and at that time with IV hydration he became very an imated and did quite well. At they have been encouraging fluids. He has had falls recently as well. Here in the ED he is found to be significantly dehydrated and IV saline is begun. He does not have the same rapid improvement that he did in August. He remained unresponsive or minimally responsive and for good measure a CT of the head is obtained without evidence of hemorrhage. I have had end of life discussion with the patient's daughters and have encouraged them not to seek a feeding tube or more aggressive therapy. They indicate that his wishes are to not be resuscitated. Departure - Departure Disposition: [facility] DC/Xfer Clinical Impression: Dehydration Altered mental status Qualifiers: Altered mental status type: coma Coma depth: [place] coma 9-12 Coma timing: at arrival to emergency department Qualified Code(s): R40.2422 - [place] coma scale score 9-12, at arrival to emergency department Condition: Poor
--- NOTE | 2018-12-10 13:45 | XRAY Report ---
Reason: decreased LOC rhonchi Procedure Date: 12/10/2018 Accession Number: [id number] / [id number] Procedure: XR - Chest 1 View X-Ray CPT Code: 73179 FULL RESULT: EXAM: CHEST RADIOGRAPHY EXAM DATE: 12/10/2018 01:28 PM. CLINICAL HISTORY: Decreased level of consciousness rhonchi. COMPARISON: CHEST 2 VIEW 08/24/2018 2:42 PM. TECHNIQUE: 1 view. FINDINGS: The study is limited by single AP view and rotation and positioning. Lungs/Pleura: No focal opacities evident. No pleural effusion. No pneumothorax. Mediastinum: Within exam limitations, the cardiomediastinal contour is normal. Other: None. IMPRESSION: No acute cardiopulmonary abnormality is detected. RADIA
[2018-12-10 13:46] LABS: BASOPHILS # (AUTO) 0.1 10^3/uL (0.0-0.1); BASOPHILS % (AUTO) 0.8 %; HGB - HEMOGLOBIN 11.7 g/dL (14.0-18.0); LYMPHOCYTES # (AUTO) 0.6 10^3/uL (1.5-3.5); LYMPHOCYTES % (AUTO) 3.6 %; MEAN CORPUSCULAR HEMOGLOBIN 32.3 pg (27.0-31.0); MEAN CORPUSCULAR HGB CONC 33.8 g/dL (32.0-36.0); MEAN CORPUSCULAR VOLUME 95.4 fL (80.0-94.0); MEAN PLATELET VOLUME 8.6 fL (7.4-11.4); MONOCYTES # (AUTO) 0.9 10^3/uL (0.0-1.0); MONOCYTES % (AUTO) 5.6 %; NEUTROPHILS # (AUTO) 13.9 10^3/uL (1.5-6.6); PLT - PLATELET COUNT 199 10^3/uL (130-450); RED BLOOD COUNT 3.62 10^6/uL (4.70-6.10); RED CELL DISTRIBUTION WIDTH 16.6 % (12.0-15.0); WHITE BLOOD COUNT 15.5 x10^3/uL (4.8-10.8)
[2018-12-10 14:01] LABS: ALBUMIN 3.2 g/dL (3.2-5.5); ALBUMIN/GLOBULIN RATIO 0.9 (1.0-2.2); BILIRUBIN,TOTAL 1.3 mg/dL (0.2-1.0); CREATININE 1.9 mg/dL (0.6-1.2); TOTAL PROTEIN 6.8 g/dL (6.7-8.2)
[2018-12-10 17:06] LABS: BILIRUBIN,URINE NEGATIVE (NEGATIVE); GLUCOSE, URINE (UA) NEGATIVE (NEGATIVE); KETONES,URINE (UA) 15 mg/dL (NEGATIVE); LEUKOCYTE ESTERASE, URINE NEGATIVE (NEGATIVE); NITRITE,URINE NEGATIVE (NEGATIVE); OCCULT BLOOD,URINE NEGATIVE (NEGATIVE); PROTEIN,URINE NEGATIVE (NEGATIVE); UROBILINOGEN,URINE 0.2 (NORMAL) E.U./dL (NORMAL)
[2018-12-10 17:10] LABS: CLARITY,URINE CLEAR (CLEAR)
--- NOTE | 2018-12-10 18:24 | CT Report ---
Reason: altered LOC Procedure Date: 12/10/2018 Accession Number: [id number] / [id number] Procedure: CT - Head W/O CPT Code: FULL RESULT: EXAM: CT HEAD EXAM DATE: 12/10/2018 05:41 PM. CLINICAL HISTORY: Altered LOC. COMPARISON: 08/24/2018. TECHNIQUE: Multiaxial CT images were obtained from the foramen magnum to the vertex. Reformats: Sagittal and coronal. IV contrast: None. In accordance with CT protocol optimization, one or more of the following dose reduction techniques were utilized for this exam: automated exposure control, adjustment of mA and/or KV based on patient size, or use of iterative reconstructive technique. FINDINGS: Streak artifact limits evaluation of the posterior fossa. Parenchyma: No intraparenchymal hemorrhage. No evidence of mass, midline shift, or CT findings of infarction. Hebert-white differentiation is distinct. There is mild paraventricular white matter hypoattenuation. Extraaxial Spaces: Normal for age. No subdural or epidural collections identified. Ventricles: Mildly enlarged. Sinuses and Orbits: Imaged paranasal sinuses, orbits, and mastoids show no significant abnormality. Bones: No evidence of fracture or calvarial defect. Other: None. IMPRESSION: No acute intracranial abnormality. RADIA
[2018-12-10] MEDS ORDERED: MORPHINE 2 MG/ML CARPUJECT IVP PRN (18:37)
[2018-12-10] MEDS ORDERED: PROCHLORPERAZINE 10 MG/2 ML VIAL IVP PRN (18:37)
[2018-12-10] MEDS ORDERED: SODIUM CHLORIDE FLUSH 0.9% 10 ML SYRINGE IVP PRN (18:37)
[2018-12-10 19:16] LABS: MAGNESIUM 1.7 mg/dL (1.7-2.8)
[2018-12-10] MEDS: DEXTROSE 5%-0.9% NACL 1,000 ML IV SCH (20:45)
[2018-12-10] MEDS ORDERED: FAMOTIDINE 20 MG/50 ML 50 ML IV SCH (21:00)
[2018-12-10 21:56] LABS: ABG PCO2 36 mmHg (34-45); ABG PH 7.41 (7.35-7.45); ABG PO2 79 mmHg (80-100)
[2018-12-10 21:57] LABS: ABG BASE EXCESS -2.2 mmol/L (-2.0-3.0); ABG OXYGEN SATURATION 96 % (94-98); ABG TCO2 23.1 MMOL/L (21.0-29.0); ALLEN TEST POSITIVE
--- NOTE | 2018-12-10 22:17 | HISTORY & PHYSICAL EXAMINATION ---
Chief Complaint - Chief Complaint Chief Complaint: altered mental status History of Present Illness - Admitted From Admitted From:: [facility] ED - History Obtained From Records Reviewed: Yes History obtained from: daughter and staff - History of Present Illness HPI Comment/Other: Patient is an 88 y/o male with Alzheimer's dementia who presented from the assisted living facility where he resides with altered mental status. As a result of his presentation he is unable to give em a history. Consequently this account was obtained from the patient's daughter and hospital staff. It is reported that the patient went to sleep on Monday (2 days ago) and has not woken up since then. He normally gets around using his wheel chair and feeds himself. It is reported that he had a similar experience in August 2018 but perked back up after 1L of NS IV hydration in the ED. During that encounter he was discharged from the ED. At bedside he appears sound asleep and not in any acute pain but occasionally coughs. He was given 2L of fluid with no change in his status. 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 Endocrine/Autoimmune: reports: None GI: reports: None : reports: None HEENT: reports: None Psych: reports: None Musculoskeletal: reports: Chronic back pain Derm: reports: None MRSA Hx?: No - Past Surgical History Ortho: reports: Spine surgery - Family & Social History Living arrangement: Assisted living - POLST Patient has POLST: Yes POLST Status: DNR Meds/Allgy - Home Medications Home Medications: Ambulatory Orders Medication Instructions Recorded Confirmed Cholecalciferol (Vitamin D3) 1,000 units PO DAILY 08/24/18 12/10/18 [Vitamin D3] Senna [Senokot] 8.6 mg PO BID 08/24/18 12/10/18 Acetaminophen 650 mg PO 0800,1400,2000 12/10/18 12/10/18 Acetaminophen 650 mg PO Q6H PRN 12/10/18 12/10/18 Docusate Sodium [Dss] 250 mg PO DAILY 12/10/18 12/10/18 Multivitamin [Theragran] 1 tab PO DAILY 12/10/18 12/10/18 [place]-3 Acid Ethyl Esters [Lovaza] 1 gm PO DAILY 12/10/18 12/10/18 Saccharomyces Boulardii [Florastor] 250 mg PO DAILY 12/10/18 12/10/18 oxyCODONE [Roxicodone] 5 mg PO DAILY 12/10/18 12/10/18 - Allergies Allergies/Adverse Reactions: Allergies Allergy/AdvReac Type Severity Reaction Status Date / Time No Known Drug Allergies Allergy Verified 11/14/18 00:24 Review of Systems - All Other Systems All Other Systems: reports: Other (ROS is limited because of patient's current altered mental status.) Prior Level of Functionality: Baseline patient has dementia from Alzheimers. Gets around using a wheelchair. Able to feed himself Lives at an assisted living facility where he is under supervision and gets assistance with activities of daily living as needed Exam - Vital Signs Reviewed Vital Signs: Yes Vital Signs: Vital Signs x48h Temp Pulse Pulse Resp BP BP Pulse Ox 12/10/18 20:15 37 C 118 H 110/64 96 12/10/18 17:56 106 H 19 139/55 H 94 12/10/18 14:55 94 21 126/52 L 88 L - Physical Exam General Appearance: positive: No acute distress, Other (altered mental status) Eyes Bilateral: positive: PERRL, EOMI, No lid inflammation, Conjunctivae nml, No scleral icterus ENT: positive: ENT inspection nml Neck: positive: Nml inspection, No JVD, Trachea midline Respiratory: positive: Breath sounds nml, Other (upper airway guggling) Cardiovascular: positive: Regular rate & rhythm, No murmur Abdomen: positive: Non-tender, No organomegaly, Nml bowel sounds, No distention. negative: Guarding, Rebound Skin: positive: Color nml, No rash, Warm, Dry. negative: Decubitus Extremities: positive: No pedal edema Neurologic/Psychiatric: positive: Disoriented to person, Disoriented to place, Disoriented to time Sepsis Event Note (H) - Evaluation Possible source of Sepsis: positive: Unknown - Sepsis Criteria Sepsis Criteria: Recorded Heart Rate greater than 90 bpm, WBC count greater than 12,000 or less than 4000 Conclusion/Plan - Problem List (1) Encephalopathy acute Conclusion/Plan: Etiology undermined Suspect infection in light of WBC 15 and mildly elevated temp vs Neurologic cause Blood cultures drawn. Will await results. If temperature rises further or vitals become unstable, Will order empiric antibiotic coverage CT scan negative for any hemorrhage ABG unremarkable. Checking ammonia level If all work up is negative, and no change in patient's clinical status in the next 24 hours, will need to discuss with his family if they would want further imaging (brain MRI) As well as what they would want done about any potential findings. (2) Dehydration Conclusion/Plan: Patient given 2L NS in the ED. Currently on D5 half NS at 150ml/hr. Will continue Expect improvement in renal function (3) Elevated creatine kinase Conclusion/Plan: ?2/2 Dehydration, r/o Rhabdomyolysis r/o Acute coronary process. Hydrating patient. Will monitor renal function Trend CK. Serial Troponins X2 more ordered - Lab Results Fish Bones: 12/10/18 13:35 12/10/18 13:35 Core Measures - Anticipated LOS I expect patient to be DC'd or transferred within 96 hours.: Yes - DVT/VTE - Prophylaxis VTE/DVT Device ordered at admit?: Yes VTE/DVT Prophylaxis med ordered at admit?: No
[2018-12-11] MEDS: SODIUM CHLORIDE FLUSH 0.9% 10 ML SYRINGE IVP SCH ×3 (01:35→19:40)
[2018-12-11] MEDS: DEXTROSE 5%-0.9% NACL 1,000 ML IV SCH (02:26)
[2018-12-11 04:12] LABS: BASOPHILS # (AUTO) 0.2 10^3/uL (0.0-0.1); BASOPHILS % (AUTO) 1.3 %; HGB - HEMOGLOBIN 10.7 g/dL (14.0-18.0); LYMPHOCYTES # (AUTO) 0.5 10^3/uL (1.5-3.5); LYMPHOCYTES % (AUTO) 3.1 %; MEAN CORPUSCULAR HEMOGLOBIN 32.3 pg (27.0-31.0); MEAN CORPUSCULAR HGB CONC 33.5 g/dL (32.0-36.0); MEAN CORPUSCULAR VOLUME 96.3 fL (80.0-94.0); MEAN PLATELET VOLUME 8.8 fL (7.4-11.4); MONOCYTES # (AUTO) 0.7 10^3/uL (0.0-1.0); MONOCYTES % (AUTO) 4.1 %; NEUTROPHILS # (AUTO) 15.6 10^3/uL (1.5-6.6); NEUTROPHILS % (AUTO) 91.5 %; PLT - PLATELET COUNT 161 10^3/uL (130-450); RED BLOOD COUNT 3.31 10^6/uL (4.70-6.10); RED CELL DISTRIBUTION WIDTH 16.7 % (12.0-15.0); WHITE BLOOD COUNT 17.1 x10^3/uL (4.8-10.8)
[2018-12-11 04:16] LABS: CALCIUM 8.5 mg/dL (8.5-10.3); CREATININE 1.6 mg/dL (0.6-1.2); MAGNESIUM 1.8 mg/dL (1.7-2.8)
[2018-12-11] MEDS ORDERED: PIPERACILLIN/TAZOBACTAM 3.375 GM in SODIUM CHLORIDE 0.9% MINIBAG 100 ML IV SCH (06:00)
[2018-12-11] MEDS ORDERED: VANCOMYCIN PER PHARMACY 100 GM in SODIUM CHLORIDE 0.9% 250 ML IV PRN (06:00)
[2018-12-11] MEDS ORDERED: VANCOMYCIN INJ 1.25 GM in SODIUM CHLORIDE 0.9% 250 ML IV SCH (06:00)
[2018-12-11] MEDS ORDERED: VANCOMYCIN INJ 1 GM in SODIUM CHLORIDE 0.9% 250 ML IV SCH (06:00)
--- NOTE | 2018-12-11 06:09 | XRAY Report ---
Reason: patient sounds rhonchous and is coughing Procedure Date: 12/11/2018 Accession Number: [id number] / [id number] Procedure: XR - Chest 1 View X-Ray CPT Code: 05730 FULL RESULT: EXAM: CHEST RADIOGRAPHY EXAM DATE: 12/11/2018 06:01 AM. CLINICAL HISTORY: Patient sounds rhonchous and is coughing. COMPARISON: CHEST 1 VIEW 12/10/2018 1:17 PM. TECHNIQUE: 1 view. FINDINGS: Lungs/Pleura: Worsening bibasilar opacities, left greater than right. Pulmonary vascularity upper normal. No definite pleural effusion seen. No pneumothorax. Mediastinum: Within exam limitations, heart is mildly enlarged. Other: None. IMPRESSION: 1. Mild cardiomegaly and borderline pulmonary vascularity. 2. Worsening bibasilar opacities, left greater than right. RADIA
[2018-12-11] MEDS ORDERED: WATER FOR INJECTION,STERILE 40 ML ONE (06:58)
--- NOTE | 2018-12-11 08:03 | PROVIDER PROGRESS NOTE ---
Subjective - Prog Note Date Prog Note Date: 12/11/18 Prog Note Time: 10:56 - Subjective Subjective: he has improved in that his eyes will open and he responds to voice occasionally and does respond to pain. he has 3 daughters and a son. 1 daughter and 1 son here. Another daughter on her way. He is open mouth breathng and gurgling saliva. retains secretions at back of throat and needs occ suction. Current Medications - Current Medications Current Medications: Active Medications Famotidine (Pepcid 20 Mg/50 Ml) 50 mls @ 100 mls/hr IV DAILY [facility] Piperacillin Sod/Tazobactam (Sod 3.375 gm/ Sodium Chloride) 100 mls @ 200 mls/hr IV Q6H [facility] Last Infusion: 12/11/18 07:39 Dose: Infused Vancomycin HCl 100 gm/ Sodium (Chloride) 250 mls @ 167 mls/hr IV PRN PRN PRN Reason: Vanco per pharmacy Vancomycin HCl 1.25 gm/ Sodium (Chloride) 250 mls @ 170 mls/hr IV Q24H [facility] Last Infusion: 12/11/18 08:52 Dose: Infused Sodium Chloride (Normal Saline 0.9%) 1,000 mls @ 125 mls/hr IV .Q8H [facility] Prochlorperazine Edisylate (Compazine Inj) 10 mg IVP Q6HR PRN PRN Reason: Nausea / Vomiting Sodium Chloride (Normal Saline Flush 0.9%) 10 ml IVP PRN PRN PRN Reason: NEEDED PER PROVIDER ORDERS Sodium Chloride (Normal Saline Flush 0.9%) 10 ml IVP 0100,0900,1700 [facility] Last Admin: 12/11/18 01:35 Dose: Not Given Cholecalciferol (Vitamin D3) [Vitamin D3] 1,000 units PO DAILY 08/24/18 Senna [Senokot] 8.6 mg PO BID 08/24/18 Acetaminophen 650 mg PO 0800,1400,2000 12/10/18 Acetaminophen 650 mg PO Q6H PRN 12/10/18 Docusate Sodium [Dss] 250 mg PO DAILY 12/10/18 Multivitamin [Theragran] 1 tab PO DAILY 12/10/18 [place]-3 Acid Ethyl Esters [Lovaza] 1 gm PO DAILY 12/10/18 Saccharomyces Boulardii [Florastor] 250 mg PO DAILY 12/10/18 oxyCODONE [Roxicodone] 5 mg PO DAILY 12/10/18 Objective - Vital Signs/Intake & Output Reviewed Vital Signs: Yes Vital Signs: Vital Signs x48h Temp Pulse Resp BP BP Pulse Ox 12/11/18 06:23 94 12/11/18 04:52 37.2 C 100 19 100/50 L 92 12/11/18 04:33 36.9 C 107 H 20 99/53 L 93 12/10/18 23:44 37.4 C 112 H 20 96/68 96 12/10/18 23:43 37.4 C 110 H 18 9668 97 Intake & Output: Intake & Output 12/08/18 12/09/18 12/10/18 12/11/18 23:59 23:59 23:59 23:59 Intake Total 1999 1440.0 Output Total 250 200 Balance 1750 1240.0 - Objective General Appearance: positive: No acute distress, Lethargic, Other (Elderly slender male, laying flat on his back at about 40 degrees. No struggle to breathe but gurgling respirations from retained secretions in the back of the throat audible as he walked in the room. Open mouth breathing. Not responding to my voice. Does respond to noxious stimuli. Son and daughter at the bedside.) Eyes Bilateral: positive: PERRL ENT: positive: Dry mucous membranes Neck: positive: No JVD. negative: Stiff neck, Carotid bruit Respiratory: positive: Chest non-tender, Rales, Rhonchi (worsening from 7 am to now (11 am)) Cardiovascular: positive: Regular rate & rhythm, Systolic murmur. negative: Gallop/S4, Friction rub Abdomen: positive: Non-tender, No organomegaly, Nml bowel sounds, No distention Skin: positive: Warm, Dry, Pallor Extremities: positive: Non-tender, No pedal edema Neurologic/Psychiatric: positive: Other (Occasionally responsive to voice, responsive to noxious stimuli. Not able to swallow. Slow spontaneous movement of his extremities without unifocal loss) - Lab Results Fish Bones: 12/11/18 04:00 12/11/18 04:00 Other Labs: Lab Results x24hrs 12/11/18 12/11/18 12/11/18 Range/Units 04:00 04:00 04:00 WBC 17.1 H (4.8-10.8) x10^3/uL RBC 3.31 L (4.70-6.10) 10^6/uL Hgb 10.7 L (14.0-18.0) g/dL Hct 31.9 L (42.0-52.0) % MCV 96.3 H (80.0-94.0) fL MCH 32.3 H (27.0-31.0) pg MCHC 33.5 (32.0-36.0) g/dL RDW 16.7 H (12.0-15.0) % Plt Count 161 (130-450) 10^3/uL MPV 8.8 (7.4-11.4) fL Neut # (Auto) 15.6 H (1.5-6.6) 10^3/uL Lymph # (Auto) 0.5 L (1.5-3.5) 10^3/uL [place] # (Auto) 0.7 (0.0-1.0) 10^3/uL Eos # (Auto) 0.0 (0.0-0.7) 10^3/uL Baso # (Auto) 0.2 H (0.0-0.1) 10^3/uL Absolute Nucleated RBC 0.00 x10^3/uL Nucleated RBC % 0.0 /100WBC APTT (24.9-33.3) secs Bld Gas Analysis Time Sample Site ABG pH (7.35-7.45) ABG pCO2 (34-45) mmHg ABG pO2 (80-100) mmHg ABG HCO3 (22.0-26.0) mmol/L ABG Total CO2 (21.0-29.0) MMOL/L ABG O2 Saturation (94-98) % ABG Base Excess (-2.0-3.0) mmol/L Van Test O2 Delivery Device O2 Liters/Min LPM Sodium 140 (135-145) mmol/L Potassium 4.4 (3.5-5.0) mmol/L Chloride 110 (101-111) mmol/L Carbon Dioxide 22 (21-32) mmol/L Anion Gap 8.0 (6-13) BUN 50 H (6-20) mg/dL Creatinine 1.6 H (0.6-1.2) mg/dL Estimated GFR (MDRD) 41 L (>89) Glucose 219 H (70-100) mg/dL Lactic Acid (0.5-2.2) mmol/L Calcium 8.5 (8.5-10.3) mg/dL Magnesium 1.8 (1.7-2.8) mg/dL Total Bilirubin (0.2-1.0) mg/dL AST (10-42) IU/L ALT (10-60) IU/L Alkaline Phosphatase (42-121) IU/L Ammonia (7-35) umol/L Total Creatine Kinase (22-269) IU/L Troponin I 0.31 (<0.49) ng/mL Total Protein (6.7-8.2) g/dL Albumin (3.2-5.5) g/dL Globulin (2.1-4.2) g/dL Albumin/Globulin Ratio (1.0-2.2) Lipase (22-51) U/L Urine Color Urine Clarity (CLEAR) Urine pH (5.0-7.5) PH Ur Specific [place] (1.002-1.030) Urine Protein (NEGATIVE) mg/dL Urine Glucose (UA) (NEGATIVE) mg/dL Urine Ketones (NEGATIVE) mg/dL Urine Occult Blood (NEGATIVE) Urine Nitrite (NEGATIVE) Urine Bilirubin (NEGATIVE) Urine Urobilinogen (NORMAL) E.U./dL Ur Leukocyte Esterase (NEGATIVE) Ur Microscopic Review Urine Culture Comments 12/10/18 12/10/18 12/10/18 Range/Units 23:14 22:07 21:45 WBC (4.8-10.8) x10^3/uL RBC (4.70-6.10) 10^6/uL Hgb (14.0-18.0) g/dL Hct (42.0-52.0) % MCV (80.0-94.0) fL MCH (27.0-31.0) pg MCHC (32.0-36.0) g/dL RDW (12.0-15.0) % Plt Count (130-450) 10^3/uL MPV (7.4-11.4) fL Neut # (Auto) (1.5-6.6) 10^3/uL Lymph # (Auto) (1.5-3.5) 10^3/uL [place] # (Auto) (0.0-1.0) 10^3/uL Eos # (Auto) (0.0-0.7) 10^3/uL Baso # (Auto) (0.0-0.1) 10^3/uL Absolute Nucleated RBC x10^3/uL Nucleated RBC % /100WBC APTT (24.9-33.3) secs Bld Gas Analysis Time 2145 Sample Site RIGHT RADIAL ABG pH 7.41 (7.35-7.45) ABG pCO2 36 (34-45) mmHg ABG pO2 79 L (80-100) mmHg ABG HCO3 22.0 (22.0-26.0) mmol/L ABG Total CO2 23.1 (21.0-29.0) MMOL/L ABG O2 Saturation 96 (94-98) % ABG Base Excess -2.2 L (-2.0-3.0) mmol/L Van Test POSITIVE O2 Delivery Device NON REBREATHER MASK O2 Liters/Min 15.00 LPM Sodium (135-145) mmol/L Potassium (3.5-5.0) mmol/L Chloride (101-111) mmol/L Carbon Dioxide (21-32) mmol/L Anion Gap (6-13) BUN (6-20) mg/dL Creatinine (0.6-1.2) mg/dL Estimated GFR (MDRD) (>89) Glucose (70-100) mg/dL Lactic Acid (0.5-2.2) mmol/L Calcium (8.5-10.3) mg/dL Magnesium (1.7-2.8) mg/dL Total Bilirubin (0.2-1.0) mg/dL AST (10-42) IU/L ALT (10-60) IU/L Alkaline Phosphatase (42-121) IU/L Ammonia 21.2 (7-35) umol/L Total Creatine Kinase (22-269) IU/L Troponin I 0.15 (<0.49) ng/mL Total Protein (6.7-8.2) g/dL Albumin (3.2-5.5) g/dL Globulin (2.1-4.2) g/dL Albumin/Globulin Ratio (1.0-2.2) Lipase (22-51) U/L Urine Color Urine Clarity (CLEAR) Urine pH (5.0-7.5) PH Ur Specific [place] (1.002-1.030) Urine Protein (NEGATIVE) mg/dL Urine Glucose (UA) (NEGATIVE) mg/dL Urine Ketones (NEGATIVE) mg/dL Urine Occult Blood (NEGATIVE) Urine Nitrite (NEGATIVE) Urine Bilirubin (NEGATIVE) Urine Urobilinogen (NORMAL) E.U./dL Ur Leukocyte Esterase (NEGATIVE) Ur Microscopic Review Urine Culture Comments 12/10/18 12/10/18 12/10/18 Range/Units 16:50 13:35 13:35 WBC (4.8-10.8) x10^3/uL RBC (4.70-6.10) 10^6/uL Hgb (14.0-18.0) g/dL Hct (42.0-52.0) % MCV (80.0-94.0) fL MCH (27.0-31.0) pg MCHC (32.0-36.0) g/dL RDW (12.0-15.0) % Plt Count (130-450) 10^3/uL MPV (7.4-11.4) fL Neut # (Auto) (1.5-6.6) 10^3/uL Lymph # (Auto) (1.5-3.5) 10^3/uL [place] # (Auto) (0.0-1.0) 10^3/uL Eos # (Auto) (0.0-0.7) 10^3/uL Baso # (Auto) (0.0-0.1) 10^3/uL Absolute Nucleated RBC x10^3/uL Nucleated RBC % /100WBC APTT 35.1 H (24.9-33.3) secs Bld Gas Analysis Time Sample Site ABG pH (7.35-7.45) ABG pCO2 (34-45) mmHg ABG pO2 (80-100) mmHg ABG HCO3 (22.0-26.0) mmol/L ABG Total CO2 (21.0-29.0) MMOL/L ABG O2 Saturation (94-98) % ABG Base Excess (-2.0-3.0) mmol/L Van Test O2 Delivery Device O2 Liters/Min LPM Sodium (135-145) mmol/L Potassium (3.5-5.0) mmol/L Chloride (101-111) mmol/L Carbon Dioxide (21-32) mmol/L Anion Gap (6-13) BUN (6-20) mg/dL Creatinine (0.6-1.2) mg/dL Estimated GFR (MDRD) (>89) Glucose (70-100) mg/dL Lactic Acid (0.5-2.2) mmol/L Calcium (8.5-10.3) mg/dL Magnesium 1.7 (1.7-2.8) mg/dL Total Bilirubin (0.2-1.0) mg/dL AST (10-42) IU/L ALT (10-60) IU/L Alkaline Phosphatase (42-121) IU/L Ammonia (7-35) umol/L Total Creatine Kinase 1076 H* (22-269) IU/L Troponin I (<0.49) ng/mL Total Protein (6.7-8.2) g/dL Albumin (3.2-5.5) g/dL Globulin (2.1-4.2) g/dL Albumin/Globulin Ratio (1.0-2.2) Lipase (22-51) U/L Urine Color YELLOW Urine Clarity CLEAR (CLEAR) Urine pH 5.0 (5.0-7.5) PH Ur Specific [place] >=1.030 H (1.002-1.030) Urine Protein NEGATIVE (NEGATIVE) mg/dL Urine Glucose (UA) NEGATIVE (NEGATIVE) mg/dL Urine Ketones 15 H (NEGATIVE) mg/dL Urine Occult Blood NEGATIVE (NEGATIVE) Urine Nitrite NEGATIVE (NEGATIVE) Urine Bilirubin NEGATIVE (NEGATIVE) Urine Urobilinogen 0.2 (NORMAL) (NORMAL) E.U./dL Ur Leukocyte Esterase NEGATIVE (NEGATIVE) Ur Microscopic Review NOT INDICATED Urine Culture Comments NOT INDICATED 12/10/18 12/10/18 12/10/18 Range/Units 13:35 13:35 13:35 WBC (4.8-10.8) x10^3/uL RBC (4.70-6.10) 10^6/uL Hgb (14.0-18.0) g/dL Hct (42.0-52.0) % MCV (80.0-94.0) fL MCH (27.0-31.0) pg MCHC (32.0-36.0) g/dL RDW (12.0-15.0) % Plt Count (130-450) 10^3/uL MPV (7.4-11.4) fL Neut # (Auto) (1.5-6.6) 10^3/uL Lymph # (Auto) (1.5-3.5) 10^3/uL [place] # (Auto) (0.0-1.0) 10^3/uL Eos # (Auto) (0.0-0.7) 10^3/uL Baso # (Auto) (0.0-0.1) 10^3/uL Absolute Nucleated RBC x10^3/uL Nucleated RBC % /100WBC APTT (24.9-33.3) secs Bld Gas Analysis Time Sample Site ABG pH (7.35-7.45) ABG pCO2 (34-45) mmHg ABG pO2 (80-100) mmHg ABG HCO3 (22.0-26.0) mmol/L ABG Total CO2 (21.0-29.0) MMOL/L ABG O2 Saturation (94-98) % ABG Base Excess (-2.0-3.0) mmol/L Van Test O2 Delivery Device O2 Liters/Min LPM Sodium 141 (135-145) mmol/L Potassium 4.8 (3.5-5.0) mmol/L Chloride 109 (101-111) mmol/L Carbon Dioxide 21 (21-32) mmol/L Anion Gap 11.0 (6-13) BUN 56 H (6-20) mg/dL Creatinine 1.9 H (0.6-1.2) mg/dL Estimated GFR (MDRD) 34 L (>89) Glucose 149 H (70-100) mg/dL Lactic Acid 1.5 (0.5-2.2) mmol/L Calcium 9.0 (8.5-10.3) mg/dL Magnesium (1.7-2.8) mg/dL Total Bilirubin 1.3 H (0.2-1.0) mg/dL AST 57 H (10-42) IU/L ALT 53 (10-60) IU/L Alkaline Phosphatase 75 (42-121) IU/L Ammonia (7-35) umol/L Total Creatine Kinase (22-269) IU/L Troponin I 0.12 (<0.49) ng/mL Total Protein 6.8 (6.7-8.2) g/dL Albumin 3.2 (3.2-5.5) g/dL Globulin 3.6 (2.1-4.2) g/dL Albumin/Globulin Ratio 0.9 L (1.0-2.2) Lipase 22 (22-51) U/L Urine Color Urine Clarity (CLEAR) Urine pH (5.0-7.5) PH Ur Specific [place] (1.002-1.030) Urine Protein (NEGATIVE) mg/dL Urine Glucose (UA) (NEGATIVE) mg/dL Urine Ketones (NEGATIVE) mg/dL Urine Occult Blood (NEGATIVE) Urine Nitrite (NEGATIVE) Urine Bilirubin (NEGATIVE) Urine Urobilinogen (NORMAL) E.U./dL Ur Leukocyte Esterase (NEGATIVE) Ur Microscopic Review Urine Culture Comments 12/10/18 Range/Units 13:35 WBC 15.5 H (4.8-10.8) x10^3/uL RBC 3.62 L (4.70-6.10) 10^6/uL Hgb 11.7 L (14.0-18.0) g/dL Hct 34.5 L (42.0-52.0) % MCV 95.4 H (80.0-94.0) fL MCH 32.3 H (27.0-31.0) pg MCHC 33.8 (32.0-36.0) g/dL RDW 16.6 H (12.0-15.0) % Plt Count 199 (130-450) 10^3/uL MPV 8.6 (7.4-11.4) fL Neut # (Auto) 13.9 H (1.5-6.6) 10^3/uL Lymph # (Auto) 0.6 L (1.5-3.5) 10^3/uL [place] # (Auto) 0.9 (0.0-1.0) 10^3/uL Eos # (Auto) 0.0 (0.0-0.7) 10^3/uL Baso # (Auto) 0.1 (0.0-0.1) 10^3/uL Absolute Nucleated RBC 0.01 x10^3/uL Nucleated RBC % 0.0 /100WBC APTT (24.9-33.3) secs Bld Gas Analysis Time Sample Site ABG pH (7.35-7.45) ABG pCO2 (34-45) mmHg ABG pO2 (80-100) mmHg ABG HCO3 (22.0-26.0) mmol/L ABG Total CO2 (21.0-29.0) MMOL/L ABG O2 Saturation (94-98) % ABG Base Excess (-2.0-3.0) mmol/L Van Test O2 Delivery Device O2 Liters/Min LPM Sodium (135-145) mmol/L Potassium (3.5-5.0) mmol/L Chloride (101-111) mmol/L Carbon Dioxide (21-32) mmol/L Anion Gap (6-13) BUN (6-20) mg/dL Creatinine (0.6-1.2) mg/dL Estimated GFR (MDRD) (>89) Glucose (70-100) mg/dL Lactic Acid (0.5-2.2) mmol/L Calcium (8.5-10.3) mg/dL Magnesium (1.7-2.8) mg/dL Total Bilirubin (0.2-1.0) mg/dL AST (10-42) IU/L ALT (10-60) IU/L Alkaline Phosphatase (42-121) IU/L Ammonia (7-35) umol/L Total Creatine Kinase (22-269) IU/L Troponin I (<0.49) ng/mL Total Protein (6.7-8.2) g/dL Albumin (3.2-5.5) g/dL Globulin (2.1-4.2) g/dL Albumin/Globulin Ratio (1.0-2.2) Lipase (22-51) U/L Urine Color Urine Clarity (CLEAR) Urine pH (5.0-7.5) PH Ur Specific [place] (1.002-1.030) Urine Protein (NEGATIVE) mg/dL Urine Glucose (UA) (NEGATIVE) mg/dL Urine Ketones (NEGATIVE) mg/dL Urine Occult Blood (NEGATIVE) Urine Nitrite (NEGATIVE) Urine Bilirubin (NEGATIVE) Urine Urobilinogen (NORMAL) E.U./dL Ur Leukocyte Esterase (NEGATIVE) Ur Microscopic Review Urine Culture Comments - Diagnostic Imaging Diagnostic Imaging Results: positive: Final report reviewed Diagnostic Imaging Comments: CHEST RADIOGRAPHY EXAM DATE: 12/11/2018 06:01 AM. CLINICAL HISTORY: Patient sounds rhonchous and is coughing. COMPARISON: CHEST 1 VIEW 12/10/2018 1:17 PM. TECHNIQUE: 1 view. FINDINGS: Lungs/Pleura: Worsening bibasilar opacities, left greater than right. Pulmonary vascularity upper normal. No definite pleural effusion seen. No pneumothorax. Mediastinum: Within exam limitations, heart is mildly enlarged. Other: None. IMPRESSION: 1. Mild cardiomegaly and borderline pulmonary vascularity. 2. Worsening bibasilar opacities, left greater than right. ABX Reporting Has patient been on IV antibiotics over the past 48 hours?: Yes Sepsis Event Note (H) - Evaluation Current Stage of Sepsis: Ruled out - Sepsis Criteria Sepsis Criteria: Recorded Heart Rate greater than 90 bpm, WBC count greater than 12,000 or less than 4000 Assessment/Plan - Problem List (1) Altered mental status Impression: Etiology undermined initially but his CXR this morning shows worsening bilateral infiltrates. Suspect pneumonia in light of WBC 15 and mildly elevated temp, WBC rising this am. He woke a bit up this am after IVF and abx. But no meaningful word usage. Blood cultures drawn and pending. Will await results. On empiric antibiotic coverage, Zosyn and Vancomycin Day #1 going into Day #[address] scan head negative for any hemorrhage ABG unremarkable. Ammonia level is 21. Since he is slightly improved, no MRI of head for today (2) Dehydration Conclusion/Plan: Patient given 2L NS in the ED. Currently on D5 half NS at 150ml/hr. Will continue Expect improvement in renal function Creatinine 1.9>1.6 (3) Elevated creatine kinase Conclusion/Plan: ?2/2 Dehydration, r/o Rhabdomyolysis r/o Acute coronary process. Hydrating patient. Will monitor renal function Trend CK: 1076>86. Serial Troponins 0.15>0.31 but I attribute to real failure and not NC. (4) Alzheimers dementia. Chronic. Present for years. No behavioral issues at this time. See advanced care planning conversation under separate note Qualifiers: Qualified Code(s): R40.2422 - Brayan coma scale score 9-12, at arrival to em ergency department
[2018-12-11] MEDS ORDERED: BISACODYL 10 MG SUPP PR SCH (08:39)
[2018-12-11] MEDS ORDERED: POLYETHYLENE GLYCOL 3350 17 GM PACKET PO SCH (09:00)
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
[2018-12-11] MEDS: FAMOTIDINE 20 MG/50 ML 50 ML IV SCH (11:19)
[2018-12-11] MEDS: SODIUM CHLORIDE 0.9% 1,000 ML IV SCH ×2 (11:20→23:35)
[2018-12-11] MEDS: PIPERACILLIN/TAZOBACTAM 3.375 GM in SODIUM CHLORIDE 0.9% MINIBAG 100 ML IV SCH ×2 (13:39→19:50)
[2018-12-11] MEDS: VANCOMYCIN INJ 1 GM in SODIUM CHLORIDE 0.9% 250 ML IV SCH (17:24)
[2018-12-11] MEDS: SCOPOLAMINE PATCH TOP SCH (20:13)
[2018-12-12] MEDS: PIPERACILLIN/TAZOBACTAM 3.375 GM in SODIUM CHLORIDE 0.9% MINIBAG 100 ML IV SCH ×4 (01:16→19:56)
[2018-12-12] MEDS: SODIUM CHLORIDE FLUSH 0.9% 10 ML SYRINGE IVP SCH ×3 (01:48→18:19)
[2018-12-12 05:48] LABS: BASOPHILS % (AUTO) 0.2 %; HGB - HEMOGLOBIN 10.6 g/dL (14.0-18.0); LYMPHOCYTES # (AUTO) 0.6 10^3/uL (1.5-3.5); LYMPHOCYTES % (AUTO) 5.9 %; MEAN CORPUSCULAR HEMOGLOBIN 32.5 pg (27.0-31.0); MEAN CORPUSCULAR HGB CONC 32.6 g/dL (32.0-36.0); MEAN CORPUSCULAR VOLUME 99.6 fL (80.0-94.0); MEAN PLATELET VOLUME 9.1 fL (7.4-11.4); MONOCYTES # (AUTO) 0.5 10^3/uL (0.0-1.0); NEUTROPHILS # (AUTO) 8.8 10^3/uL (1.5-6.6); NEUTROPHILS % (AUTO) 88.9 %; PLT - PLATELET COUNT 134 10^3/uL (130-450); RED BLOOD COUNT 3.25 10^6/uL (4.70-6.10); RED CELL DISTRIBUTION WIDTH 17.3 % (12.0-15.0); WHITE BLOOD COUNT 9.9 x10^3/uL (4.8-10.8)
[2018-12-12] MEDS: VANCOMYCIN INJ 1 GM in SODIUM CHLORIDE 0.9% 250 ML IV SCH ×2 (05:48→18:19)
[2018-12-12 05:50] LABS: CALCIUM 8.5 mg/dL (8.5-10.3); CREATININE 1.6 mg/dL (0.6-1.2)
[2018-12-12] MEDS: FAMOTIDINE 20 MG/50 ML 50 ML IV SCH (09:44)
[2018-12-12] MEDS: SODIUM CHLORIDE 0.9% 1,000 ML IV SCH ×3 (09:49→12:15)
--- NOTE | 2018-12-12 11:42 | PROVIDER PROGRESS NOTE ---
Subjective - Prog Note Date Prog Note Date: 12/12/18 Prog Note Time: 17:21 - Subjective Subjective: He remains on oxygen mask, 13 L flow to maintain O2 sats at 95%. Blood pressures been stable in the 120-130s systolic. He is unresponsive to voice, but does withdraw to pain. He is unable to clear his secretions and has a very weak cough, gurgling in the back of his throat that requires occasional suction. Course upper airway rhonchi. He is at 45 degrees and if we lower many were further he gets uncomfortable. He has been afebrile. Has not had any p.o. intake. Current Medications - Current Medications Current Medications: Active Medications Famotidine (Pepcid 20 Mg/50 Ml) 50 mls @ 100 mls/hr IV DAILY [facility] Last Infusion: 12/12/18 10:15 Dose: Infused Piperacillin Sod/Tazobactam (Sod 3.375 gm/ Sodium Chloride) 100 mls @ 200 mls/hr IV Q6H [facility] Last Infusion: 12/12/18 08:32 Dose: Infused Vancomycin HCl 1 gm/ Sodium (Chloride) 250 mls @ 167 mls/hr IV Q12H [facility] Last Infusion: 12/12/18 07:18 Dose: Infused Sodium Chloride (Normal Saline 0.9%) 1,000 mls @ 85 mls/hr IV .[id number] [facility] Prochlorperazine Edisylate (Compazine Inj) 10 mg IVP Q6HR PRN PRN Reason: Nausea / Vomiting Scopolamine HBr (Transderm-Scop) 1 patch TOP Q3D [facility] Last Admin: 12/11/18 20:13 Dose: 1 patch Sodium Chloride (Normal Saline Flush 0.9%) 10 ml IVP PRN PRN PRN Reason: NEEDED PER PROVIDER ORDERS Sodium Chloride (Normal Saline Flush 0.9%) 10 ml IVP 0100,0900,1700 [facility] Last Admin: 12/12/18 09:57 Dose: Not Given Cholecalciferol (Vitamin D3) [Vitamin D3] 1,000 units PO DAILY 08/24/18 Senna [Senokot] 8.6 mg PO BID 08/24/18 Acetaminophen 650 mg PO 0800,1400,2000 12/10/18 Acetaminophen 650 mg PO Q6H PRN 12/10/18 Docusate Sodium [Dss] 250 mg PO DAILY 12/10/18 Multivitamin [Theragran] 1 tab PO DAILY 12/10/18 [place]-3 Acid Ethyl Esters [Lovaza] 1 gm PO DAILY 12/10/18 Saccharomyces Boulardii [Florastor] 250 mg PO DAILY 12/10/18 oxyCODONE [Roxicodone] 5 mg PO DAILY 12/10/18 Objective - Vital Signs/Intake & Output Reviewed Vital Signs: Yes Vital Signs: Vital Signs x48h Temp Pulse Resp BP Pulse Ox 12/12/18 08:20 37.2 C 72 16 120/48 L 95 12/12/18 05:00 37.1 C 73 24 138/59 H 95 Intake & Output: Intake & Output 12/09/18 12/10/18 12/11/18 12/12/18 23:59 23:59 23:59 23:59 Intake Total 1999 3552.500 1279.167 Output Total 250 800 400 Balance 1750 2752.500 879.167 - Objective General Appearance: positive: Other (Unresponsive to voice, does respond to pain, open mouth breathing of gurgling respiration with a weak cough for he cannot bring up the secretions) Eyes Bilateral: positive: PERRL, EOMI ENT: positive: Dry mucous membranes Neck: positive: No JVD. negative: Stiff neck, Carotid bruit Respiratory: positive: Chest non-tender, No respiratory distress, Rhonchi Cardiovascular: positive: Regular rate & rhythm, Systolic murmur. negative: Gallop/S4, Friction rub Abdomen: positive: Non-tender, Nml bowel sounds, No distention. negative: Guarding, Rebound Skin: positive: Warm, Dry Extremities: positive: No pedal edema Neurologic/Psychiatric: positive: Other (Comatose, unresponsive to voice. Only responds to pain.) - Lab Results Fish Bones: 12/12/18 05:10 12/12/18 05:10 Other Labs: Lab Results x24hrs 12/12/18 12/12/18 Range/Units 05:10 05:10 WBC 9.9 (4.8-10.8) x10^3/uL RBC 3.25 L (4.70-6.10) 10^6/uL Hgb 10.6 L (14.0-18.0) g/dL Hct 32.4 L (42.0-52.0) % MCV 99.6 H (80.0-94.0) fL MCH 32.5 H (27.0-31.0) pg MCHC 32.6 (32.0-36.0) g/dL RDW 17.3 H (12.0-15.0) % Plt Count 134 (130-450) 10^3/uL MPV 9.1 (7.4-11.4) fL Neut # (Auto) 8.8 H (1.5-6.6) 10^3/uL Lymph # (Auto) 0.6 L (1.5-3.5) 10^3/uL [place] # (Auto) 0.5 (0.0-1.0) 10^3/uL Eos # (Auto) 0.0 (0.0-0.7) 10^3/uL Baso # (Auto) 0.0 (0.0-0.1) 10^3/uL Absolute Nucleated RBC 0.00 x10^3/uL Nucleated RBC % 0.0 /100WBC Sodium 147 H (135-145) mmol/L Potassium 3.6 (3.5-5.0) mmol/L Chloride 117 H (101-111) mmol/L Carbon Dioxide 21 (21-32) mmol/L Anion Gap 9.0 (6-13) BUN 47 H (6-20) mg/dL Creatinine 1.6 H (0.6-1.2) mg/dL Estimated GFR (MDRD) 41 L (>89) Glucose 126 H (70-100) mg/dL Calcium 8.5 (8.5-10.3) mg/dL ABX Reporting Has patient been on IV antibiotics over the past 48 hours?: Yes Sepsis Event Note (H) - Evaluation Current Stage of Sepsis: Ruled out Possible source of Sepsis: positive: Unknown - Sepsis Criteria Sepsis Criteria: Recorded Heart Rate greater than 90 bpm, WBC count greater than 12,000 or less than 4000 Assessment/Plan - Problem List (1) Encephalopathy acute Impression: from pneumonia. Not at baseline status even with treament of pneumonia. Combine this with his hx of dementia and ACP conversation from 12/11, decision has been mde by SONIYA to complete his pneumonia treatment and then transition to Hospice. I have spoken to Dr Link to present the patient and have spoken to the senior manager creative services, Brianna, and he will be opened 12/15 since his daughtre (POA) cant be there until then. He will return to [facility]. : Overall poor prognosis. (2) Pneumonia Conclusion/Plan Etiology of unconsciousness undermined initially but his CXR 12/11 morning shows worsening bilateral infiltrates. Presented with WBC 15 and mildly elevated temp, WBC tanya this 12/11 am. He woke a bit up 12/11 am after IVF and abx. But no meaningful word usage. Blood cultures negative at 24 hours. On empiric antibiotic coverage, Zosyn and Vancomycin Day #2 going into Day #3 , Plan for abx until 12/15 then transfer to SNF for Hospice care. CT scan head negative for any hemorrhage ABG unremarkable. Ammonia level is 21. Since he is slightly improved, no MRI of head Scopalamine added yesterday afternoon bc of increased secretions and gurgling (3) Dehydration Conclusion/Plan: Patient given 2L NS in the ED. Currently on D5 half NS at 150ml/hr. Reduce to 85 cc/hr Expect improvement in renal function Creatinine 1.9>1.6>1.6 today (4) Elevated creatine kinase Conclusion/Plan: ?2/2 Dehydration, r/o Rhabdomyolysis r/o Acute coronary process. Hydrating patient. Will monitor renal function Trend CK: 1076>861>today pending. Serial Troponins 0.15>0.31 but I attribute to real failure and not [place]. (5) Alzheimers dementia. Chronic. Present for years. No behavioral issues at this time. See advanced care planning conversation under separate note 12/11/18 Qualifiers: Qualified Code(s): R40.2422 - [place] coma scale score 9-12, at arrival to emergency department
[2018-12-13] MEDS: SODIUM CHLORIDE 0.9% 1,000 ML IV SCH (00:13)
[2018-12-13] MEDS: PIPERACILLIN/TAZOBACTAM 3.375 GM in SODIUM CHLORIDE 0.9% MINIBAG 100 ML IV SCH ×2 (00:17→06:21)
[2018-12-13] MEDS: SODIUM CHLORIDE FLUSH 0.9% 10 ML SYRINGE IVP SCH ×3 (04:19→15:54)
[2018-12-13] MEDS: VANCOMYCIN INJ 1 GM in SODIUM CHLORIDE 0.9% 250 ML IV SCH (06:07)
[2018-12-13] MEDS ORDERED: DEXTROSE 5%-0.45% NACL 1,000 ML IV SCH (07:00)
--- NOTE | 2018-12-13 07:27 | PROVIDER PROGRESS NOTE ---
Subjective - Prog Note Date Prog Note Date: 12/13/18 Prog Note Time: 08:50 - Subjective Subjective: 1 of his daughters at the bedside. He has less gurgling. Struggles to open his eyes at her voice. Cannot quite open them. Still nonverbal, unresponsive except to pain. Current Medications - Current Medications Current Medications: Active Medications Famotidine (Pepcid 20 Mg/50 Ml) 50 mls @ 100 mls/hr IV DAILY [facility] Last Infusion: 12/12/18 10:15 Dose: Infused Piperacillin Sod/Tazobactam (Sod 3.375 gm/ Sodium Chloride) 100 mls @ 200 mls/hr IV Q6H [facility] Last Infusion: 12/13/18 06:51 Dose: Infused Vancomycin HCl 1 gm/ Sodium (Chloride) 250 mls @ 167 mls/hr IV Q12H [facility] Last Admin: 12/13/18 06:07 Dose: Not Given Dextrose/Sodium Chloride (D5.45ns) 1,000 mls @ 83.333 mls/hr IV .Q12H [facility] Prochlorperazine Edisylate (Compazine Inj) 10 mg IVP Q6HR PRN PRN Reason: Nausea / Vomiting Scopolamine HBr (Transderm-Scop) 1 patch TOP Q3D [facility] Last Admin: 12/11/18 20:13 Dose: 1 patch Sodium Chloride (Normal Saline Flush 0.9%) 10 ml IVP PRN PRN PRN Reason: NEEDED PER PROVIDER ORDERS Sodium Chloride (Normal Saline Flush 0.9%) 10 ml IVP 0100,0900,1700 [facility] Last Admin: 12/13/18 04:19 Dose: Not Given Cholecalciferol (Vitamin D3) [Vitamin D3] 1,000 units PO DAILY 08/24/18 Senna [Senokot] 8.6 mg PO BID 08/24/18 Acetaminophen 650 mg PO 0800,1400,2000 12/10/18 Acetaminophen 650 mg PO Q6H PRN 12/10/18 Docusate Sodium [Dss] 250 mg PO DAILY 12/10/18 Multivitamin [Theragran] 1 tab PO DAILY 12/10/18 [place]-3 Acid Ethyl Esters [Lovaza] 1 gm PO DAILY 12/10/18 Saccharomyces Boulardii [Florastor] 250 mg PO DAILY 12/10/18 oxyCODONE [Roxicodone] 5 mg PO DAILY 12/10/18 Objective - Vital Signs/Intake & Output Reviewed Vital Signs: Yes Vital Signs: Vital Signs x48h Temp Pulse Resp BP Pulse Ox 12/13/18 04:10 36.8 C 63 20 138/69 H 97 12/12/18 23:35 36.8 C 60 22 126/60 95 Intake & Output: Intake & Output 12/10/18 12/11/18 12/12/18 12/13/18 23:59 23:59 23:59 23:59 Intake Total 1999 3552.500 2444.834 1164.583 Output Total 250 800 975 400 Balance 1750 2752.500 1469.834 764.583 - Objective General Appearance: positive: No acute distress, Other (Unresponsive elderly gentleman with cachexia and wasting, open mouth breathing, nasal cannula oxygen) Eyes Bilateral: positive: PERRL ENT: positive: Dry mucous membranes Respiratory: positive: Chest non-tender, No respiratory distress, Rales, Rhonchi, Other (less gurgling from the back of his throat) Cardiovascular: positive: Regular rate & rhythm. negative: Gallop/S4, Friction rub Abdomen: positive: Non-tender, Nml bowel sounds, No distention Extremities: positive: Nml appearance, No pedal edema Neurologic/Psychiatric: positive: Other (no response except to withdraw from painful stimuli) - Lab Results Fish Bones: 12/12/18 05:10 12/12/18 05:10 Other Labs: Lab Results x24hrs 12/13/18 12/13/18 Range/Units 06:06 05:30 POC Whole Bld Glucose 91 (70 - 100) mg/dL Last Dose Date 12-12-18 Last Dose Time 1800 Vancomycin Trough 25.1 H* (10.0-20.0) ug/mL ABX Reporting Has patient been on IV antibiotics over the past 48 hours?: Yes Sepsis Event Note (H) - Evaluation Current Stage of Sepsis: Ruled out Possible source of Sepsis: positive: Unknown - Sepsis Criteria Sepsis Criteria: Recorded Heart Rate greater than 90 bpm, WBC count greater than 12,000 or less than 4000 Assessment/Plan - Problem List (1) Encephalopathy acute Impression: from pneumonia. Not at baseline status even with treament of pneumonia. Combine this with his hx of dementia and ACP conversation from 12/11, decision has been made by SONIYA to complete his pneumonia treatment and then transition to Hospice. I have spoken to Dr Link to present the patient and have spoken to the business records manager, Brianna, and he will be opened 12/15 since his daughter (SONIYA) cant be there until then. He will return to [facility]. : Overall poor prognosis. No changes for today. He seems to be comfortable and symptoms controlled with anticipated in next few days to a week. (2) Pneumonia Conclusion/Plan Etiology of unconsciousness undermined initially but his CXR 12/11 morning shows worsening bilateral infiltrates. Presented with WBC 15 and mildly elevated temp, WBC tanya this 12/11 am. He woke a bit up 12/11 am after IVF and abx. But no meaningful word usage. Blood cultures negative at 24 hours. On empiric antibiotic coverage, Zosyn and Vancomycin Day #3 going into Day #4 , Plan for abx until 12/15 then transfer to SNF for Hospice care. Vancomycin trough up today. Pharmacy to adjust. CT scan head negative for any hemorrhage ABG unremarkable. Ammonia level is 21. Since he is slightly improved, no MRI of head Scopalamine added 12/11 afternoon bc of increased secretions and gurgling (3) Dehydration Conclusion/Plan: Patient given 2L NS in the ED. Currently on D5 half NS at 150ml/hr. Reduce to 85 cc/hr Expect improvement in renal function Creatinine 1.9>1.6>1.6 . No further labs to be done. (4) Elevated creatine kinase Conclusion/Plan: ?2/2 Dehydration, r/o Rhabdomyolysis r/o Acute coronary process. Hydrating patient. Will monitor renal function Trend CK: 1076>861>today pending. Serial Troponins 0.15>0.31 but I attribute to real failure and not [place]. No further labs to be done. (5) Alzheimers dementia. Chronic. Present for years. No behavioral issues at this time. See advanced care planning conversation under separate note 12/11/18 Qualifiers: Qualified Code(s): R40.2422 - [place] coma scale score 9-12, at arrival to emergency department
[2018-12-13 07:34] VITALS: BP 140/57
[2018-12-13] MEDS: FAMOTIDINE 20 MG/50 ML 50 ML IV SCH (08:31)
[2018-12-13] MEDS ORDERED: ACETAMINOPHEN 650 MG SUPP PR PRN (10:27)
[2018-12-13] MEDS ORDERED: ONDANSETRON 4 MG/2 ML VIAL IVP PRN (10:27)
[2018-12-13] MEDS ORDERED: ONDANSETRON ODT 4 MG TABLET TL PRN (10:27)
[2018-12-13] MEDS: MORPHINE SOL 10 MG/0.5 ML SYRINGE PO PRN (14:29)
[2018-12-13 16:51] LABS: VANCOMYCIN,TROUGH 25.1 ug/mL (10.0-20.0)
[2018-12-14] MEDS: SODIUM CHLORIDE FLUSH 0.9% 10 ML SYRINGE IVP SCH ×2 (05:13→08:27)
[2018-12-14] MEDS: MORPHINE SOL 10 MG/0.5 ML SYRINGE PO PRN ×5 (08:27→21:21)
[2018-12-14] MEDS: LORazepam 2 MG/ML VIAL IVP PRN ×2 (08:27→14:38)
--- NOTE | 2018-12-14 17:44 | PROVIDER PROGRESS NOTE ---
Subjective - Prog Note Date Prog Note Date: 12/14/18 Prog Note Time: 17:42 - Subjective Subjective: At times he has been grimacing, frowning, and twitching his face. Family asked that we increase his morphine doses. He was on 2 mg sublingual every 2. I have increased it to 10 mg sublingual every 2 once pharmacy was able to explain to me that 10 mg of Roxanol is equivalent to 10 mg of hydrocodone. Since yesterday he has been in comfort measure treatment only. Current Medications - Current Medications Current Medications: Active Medications Acetaminophen (Tylenol) 650 mg IA Q4H PRN PRN Reason: Fever >101 Lorazepam (Ativan Inj (Vial)) 1 mg IVP Q6H PRN PRN Reason: Anxiety/Agitation Last Admin: 12/14/18 14:38 Dose: 1 mg Morphine Sulfate (Roxanol) 10 mg PO Q2HR PRN PRN Reason: PAIN Last Admin: 12/14/18 16:28 Dose: 10 mg Ondansetron HCl (Zofran Inj) 4 mg IVP Q8H PRN PRN Reason: Nausea / Vomiting Ondansetron HCl (Zofran Odt) 4 mg TL Q8H PRN PRN Reason: Nausea / Vomiting Prochlorperazine Edisylate (Compazine Inj) 10 mg IVP Q6HR PRN PRN Reason: Nausea / Vomiting Scopolamine HBr (Transderm-Scop) 1 patch TOP Q3D [facility] Last Admin: 12/11/18 20:13 Dose: 1 patch Sodium Chloride (Normal Saline Flush 0.9%) 10 ml IVP PRN PRN PRN Reason: NEEDED PER PROVIDER ORDERS Sodium Chloride (Normal Saline Flush 0.9%) 10 ml IVP 0100,0900,1700 [facility] Last Admin: 12/14/18 08:27 Dose: 10 ml Cholecalciferol (Vitamin D3) [Vitamin D3] 1,000 units PO DAILY 08/24/18 Senna [Senokot] 8.6 mg PO BID 08/24/18 Acetaminophen 650 mg PO 0800,1400,2000 12/10/18 Acetaminophen 650 mg PO Q6H PRN 12/10/18 Docusate Sodium [Dss] 250 mg PO DAILY 12/10/18 Multivitamin [Theragran] 1 tab PO DAILY 12/10/18 [place]-3 Acid Ethyl Esters [Lovaza] 1 gm PO DAILY 12/10/18 Saccharomyces Boulardii [Florastor] 250 mg PO DAILY 12/10/18 oxyCODONE [Roxicodone] 5 mg PO DAILY 12/10/18 Objective - Vital Signs/Intake & Output Reviewed Vital Signs: Yes Intake & Output: Intake & Output 12/11/18 12/12/18 12/13/18 12/14/18 23:59 23:59 23:59 23:59 Intake Total 3552.500 2444.834 1634.333 Output Total 761 926 0911 700 Balance 2752.500 1469.834 559.333 -700 - Objective General Appearance: positive: Other (Cachectic elderly gentleman with open mouth breathing, unresponsive to voice or noxious stimuli at this time. Occasional grimacing of face or wrinkling of nose, with slow sonorous respirations. Secretions sounds have improved tremendously with the addition of scopolamine.) - Lab Results Fish Bones: 12/12/18 05:10 12/12/18 05:10 ABX Reporting Has patient been on IV antibiotics over the past 48 hours?: Yes Sepsis Event Note (H) - Evaluation Current Stage of Sepsis: Ruled out Possible source of Sepsis: positive: Unknown - Sepsis Criteria Sepsis Criteria: Recorded Heart Rate greater than 90 bpm, WBC count greater than 12,000 or less than 4000 Assessment/Plan - Problem List (1) Comfort measures only status Impression: We are focusing on control of noxious symptoms. He is getting Tylenol for fever, morphine for agitation and respiratory distress, Ativan for agitation, scopolamine for secretions. Family at the bedside. Imminently dying.
[2018-12-14] MEDS ORDERED: LORazepam 1 MG TABLET SL PRN (18:10)
[2018-12-14] MEDS: SCOPOLAMINE PATCH TOP SCH (19:54)
[2018-12-15] MEDS: MORPHINE SOL 10 MG/0.5 ML SYRINGE PO PRN ×3 (02:21→05:50)
--- NOTE | 2018-12-15 07:11 | DISCHARGE SUMMARY ---
Discharge Summary Admit Date: 12/10/18 Discharge Date: 12/15/18 Discharging Provider: Dr Rhett Kingsley Primary Care Provider: Mushtaq Mendoza Code Status: Do Not Attempt Resuscitation Discharge Disposition: 20 Discharge Facility Name: N/A - DIAGNOSES Admission Diagnoses: Encephalopathy Discharge Diagnoses with Status of Each Condition: 1. Encephalopathy Unresolved. Lack of response led to the decision to transition to comfort care. 2. Community-acquired pneumonia Treated for 3 days with IV vancomycin and Zosyn, discontinued at the family's request due to lack of improvement - HPI History of Present Illness: HPI from admitting attending Dr Govea, "Patient is an 88 y/o male with Alzheimer's dementia who presented from the assisted living facility where he resides with altered mental status. As a result of his presentation he is unable to give em a history. Consequently this account was obtained from the patient's daughter and hospital staff. It is reported that the patient went to sleep on Monday (2 days ago) and has not woken up since then. He normally gets around using his wheel chair and feeds himself. It is reported that he had a similar experience in August 2018 but perked back up after 1L of NS IV hydration in the ED. During that encounter he was discharged from the ED. At bedside he appears sound asleep and not in any acute pain but occasionally coughs. He was given 2L of fluid with no change in his status. As a result he is being admitted for further treatment". - HOSPITAL COURSE Hospital Course: Following is the summary of Mr Cornel Marino, who was an 88-year-old male who was admitted to this facility on 12/10/2018 through the emergency department. Patient had been found in a nonresponsive state of stupor and altered mental status at his assisted living facility. He was brought to the emergency room for further evaluation. He had had one prior episode similar to this in which he responded to a single 1 L bolus of IV fluids after which he perked up and became awake and was able to discharge straight from the emergency department. He did not have the same response to such treatment in the ED on this admission and at the time of admission the only pertinent abnormal finding was a WBC count of 15, with no other vital signs or laboratory findings to immediately suggest the etiology. CT scan of the head was unremarkable. ABG was unremarkable. Ammonia level was 21. It was suspected he may have had an encephalopathy, but given his age and his overall poor health prognosis, family discussions were had prior to significantly advancing the diagnostic workup. Within the next day or so, after continued empiric IV antibiotics for suspected pneumonia that was seen on chest x-ray, the patient had some mild improvement in that he was able to open his eyes, and he would show a response to verbal questioning and stimuli but without any audible or comprehensible response. He did also respond to pain. On 12/11/2018, there was a family conference held with the patient's daughter who is power of corporate associate attorney. She decided at that time that she would like the patient to complete the course of antibiotics for this pneumonia after which point he would be discharged to hospice care at [facility]. In the meantime, the patient had what appeared to be agonal breathing, he requ ired as of the morning of 12/12/2018, 13 L of oxygen to maintain saturations at 95%. His blood pressures have been stable. He then became more unresponsive to voice but does withdraw to pain. He was having a weak cough and was obviously having a difficult time clearing his own secretions. On the morning of 12/13/2018, Dr. Vyas, the hospitalist who has been rounding on this patient since his admission, had a conversation with patient's son Jensen. He had also spoken to another 1 of his daughters who is at the bedside at this time. Both son and daughter of patient agreed at that time that they did not want to continue any further treatment given the lack of response so far to the antibiotics. Dr. Vyas then called Yovana, his DURABLE POWER OF RAILWAYS ASSISTANT, and she also agreed at this time that it would be best to transition the patient's goals of care to comfort care only. All other medications including antibiotics at this point were withdrawn, and only comfort care medications were continued as of the morning of 12/13/2018. On 12/14/2018, on daily rounds he appeared to show signs of discomfort showing some grimacing, frowning and twitching to his face. Family asked to increase t he dose of morphine. After consulting with the hospital pharmacist, Dr. Shultz increased his morphine from 2 mg sublingual every 2 hours to 10 mg sublingual every 2 hours. He continued and his overall state of stupor throughout the night until customer service advisor on 12/15/2018 at approximately 6:25 AM when the nurse came to the room to evaluate the patient and found no signs of life. I was called to assess the patient, at which point I arrived at the patient's room, and at bedside I did auscultate for heart sounds, felt for radial and carotid pulse. Checked for a corneal reflex. Checked for pain to noxious stimuli on the fingernail, as well as sternal rub. All such signs or demonstrative of no signs of life as there were no heart sounds, no pulse, no corneal reflex, and no response to pain. Time of was determined to be 6:25 AM. - ALLERGIES Allergies/Adverse Reactions: Allergies Allergy/AdvReac Type Severity Reaction Status Date / Time No Known Drug Allergies Allergy Verified 11/14/18 00:24 - MEDICATIONS Home Medications: Ambulatory Orders Medication Instructions Recorded Confirmed Cholecalciferol (Vitamin D3) 1,000 units PO DAILY 08/24/18 12/10/18 [Vitamin D3] Senna [Senokot] 8.6 mg PO BID 08/24/18 12/10/18 Acetaminophen 650 mg PO 0800,1400,199912/10/18 12/10/18 Acetaminophen 650 mg PO Q6H PRN 12/10/18 12/10/18 Docusate Sodium [Dss] 250 mg PO DAILY 12/10/18 12/10/18 Multivitamin [Theragran] 1 tab PO DAILY 12/10/18 12/10/18 [place]-3 Acid Ethyl Esters [Lovaza] 1 gm PO DAILY 12/10/18 12/10/18 Saccharomyces Boulardii [Florastor] 250 mg PO DAILY 12/10/18 12/10/18 oxyCODONE [Roxicodone] 5 mg PO DAILY 12/10/18 12/10/18 - PHYSICAL EXAM AT DISCHARGE General Appearance: positive: Other (Patient is ) Physical Exam Other/Comments: See hospital course above for details, patient is with all signs of life absent. - LABS Result Diagrams: 12/12/18 05:10 12/12/18 05:10 - DIAGNOSTIC IMAGING Diagnostic Imaging Results: Final report reviewed - SEPSIS Current Stage of Sepsis: Ruled out Possible source of Sepsis: Unknown Sepsis Criteria: Recorded Heart Rate greater than 90 bpm, WBC count greater than 12,000 or less than 4000 - FOLLOW UP Follow Up: N/A - TIME SPENT Time Spent in Discharge (Minutes): 34
== END 2018-12-15 06:25 | disposition expired | DRG 194 ==
LOC: EDUNIT# → ED 12:53 → MS2 18:37
PROVIDERS: ADMIT Internal Medicine; ATTEND Specialist
DX: J18.9 Pneumonia, unspecified organism (principal); G93.40 Encephalopathy, unspecified; R64 Cachexia; G89.29 Other chronic pain; M54.9 Dorsalgia, unspecified; G30.9 Alzheimer's disease, unspecified; F02.80 Dementia in other diseases classified elsewhere, unspecified severity, without behavioral disturbance, psychotic disturbance, mood disturbance, and anxiety; E86.0 Dehydration; Z66 Do not resuscitate; Z51.5 Encounter for palliative care; Z68.24 Body mass index [BMI] 24.0-24.9, adult; R40.2422 Glasgow coma scale score 9-12, at arrival to emergency department
CPT/HCPCS: 36415; 36600; 70450; 71045; 80048; 80053; 80202; 81001; 81003; 82140; 82550; 82803; 83605; 83690; 83735; 84153; 84484; 85025; 85730; 87040; 87086; 96360; 96361; 99284